=== PATIENT | male | born 1950 | race Caucasian/White ===

== ENCOUNTER → 2017-03-01 | Outpatient (CLI) | payer MEDICARE ==
--- NOTE | 2017-03-01 11:16 | RADIOLOGY REPORT (SQ) ---
EXAM DESCRIPTION: CHEST PA/LAT COMPLETED DATE/TIME: 03/01/2017 11:03 am REASON FOR STUDY: COPD EXACERBATION COMPARISON: November 2015 EXAM PARAMETERS: NUMBER OF VIEWS: two views TECHNIQUE: Digital Frontal and Lateral radiographic views of the chest acquired. RADIATION DOSE: NA LIMITATIONS: none FINDINGS: LUNGS AND PLEURA: No opacities, masses or pneumothorax. There is blunting of the costophr enic angles which could represent pleural reaction or small effusions. Chronic appearing changes are again identified. MEDIASTINUM AND HILAR STRUCTURES: No masses or contour abnormalities. HEART AND VASCULAR STRUCTURES: Cardiac silhouette remains enlarged. There is pulmonary vascular prem estion BONES: No acute findings. HARDWARE: Patient is status post median sternotomy with coronary bypass surgery OTHER: No other significant finding. IMPRESSION: Cardiomegaly with pulmonary vascular congestion. There is blunting of the costophrenic angles which could represent pleural reaction or small effusions. Other findings as noted above TECHNICAL DOCUMENTATION: JOB ID: [id number] [employer]- All Rights Reserved
== END ==
LOC: RAD 10:47
PROVIDERS: ATTEND Family Medicine
DX: J44.1 Chronic obstructive pulmonary disease with (acute) exacerbation (principal)
CPT/HCPCS: 71046

== ENCOUNTER → 2017-06-15 | Outpatient (CLI) | payer MEDICARE ==
--- NOTE | 2017-06-15 20:07 | XCELERA REPORT ---
[address] [address] Transthoracic Echocardiogram Report Name: EMILIA ENGLISH Age: 67 yrs Gender: Male : 1950 Patient Status: Outpatient Patient Location: Study Date: 06/15/2017 09:46 AM Height: 72 in Weight: 226 lb BSA: 2.2 m2 Procedure: A complete two-dimensional transthoracic echocardiogram was performed (2D, M-mode, spectral and color flow Doppler). The study was technically difficult with many images being suboptimal in quality. Reason For Study: [id number] Ordering Physician: MICHELE MURRY Performed By: Khalida Rajan Interpretation Summary LV EF is 45% LV diastolic function could not be adequately assessed due to atrial fibrilation. Left ventricular systolic function is mildly reduced. There is borderline concentric left ventricular hypertrophy. The left ventricle is mildly dilated. There is mild global hypokinesis of the left ventricle. The right ventricular systolic function is borderline reduced. The right ventricle is mildly dilated. The right atrium is moderate to severely dilated. The left atrium is severely dilated. There is a trace to mild amount of mitral regurgitation There is no mitral valve stenosis. There is mild aortic stenosis There is a peak gradient of 25 mm of Hg. There is a mild amount of aortic regurgitation There is a mild amount of tricuspid regurgitation There is mild pulmonary hypertension by echo Right ventricular systolic pressure is estimated to be elevated at 40- 50mmHg. There is no pericardial effusion. MMode/2D Measurements & Calculations RVDd: 3.2 cm LVIDd: 6.2 cmFS: 15.6 % Ao root diam: 3.7 cm IVSd: 0.99 cm LVIDs: 5.3 cmEDV(Teich): 197.1 ml LVPWd: 1.1 cmESV(Teich): 133.3 mlAo root area: 11.0 cm2 EF(Teich): 32.3 % LVOT diam: 2.5 cm LVOT area: 4.8 cm2 Doppler Measurements & Calculations MV E max jak: MV dec slope: Ao V2 max: AI max jak: 167.2 cm/sec 634.0 cm/sec2 232.7 cm/sec 394.0 cm/sec MV dec time: Ao max PG: AI max P.26 sec 21.7 mmHg 62.1 mmHg Ao V2 mean: AI dec slope: 162.9 cm/sec 160.5 cm/sec2 Ao mean PG: AI P1/2t: 11.9 mmHg 718.9 msec Ao V2 VTI: 52.7 cm MARBELLA(I,D): 1.9 cm2 MARBELLA(V,D): 1.8 cm2 LV V1 max PG: SV(LVOT): 97.6 ml PA V2 max: PI end-d jak: 3.1 mmHg 100.0 cm/sec 128.7 cm/sec LV V1 mean PG: PA max P.5 mmHg 4.0 mmHg LV V1 max: 88.3 cm/sec LV V1 mean: 58.2 cm/sec LV V1 VTI: 20.1 cm TR max jak: 273.2 cm/sec TR max P.3 mmHg Left Ventricle The left ventricle is mildly dilated. There is borderline concentric left ventricular hypertrophy. Left ventricular systolic function is mildly reduced. LV EF is 45%. LV diastolic function could not be adequately assessed due to atrial fibrilation. There is mild global hypokinesis of the left ventricle. Right Ventricle The right ventricle is mildly dilated. There is normal right ventricular wall thickness. The right ventricular systolic function is borderline reduced. Atria The right atrium is moderate to severely dilated. The left atrium is severely dilated. Interarterial septum not well visualized and not well dopplered. Cannot comment on ASD/PFO presence. Mitral Valve The mitral valve is grossly normal. There is no mitral valve stenosis. There is a trace to mild amount of mitral regurgitation. Aortic Valve The aortic valve is mildly calcified. There is mild aortic stenosis. There is a peak gradient of 25 mm of Hg. There is a mild amount of aortic regurgitation. Tricuspid Valve The tricuspid valve is not well visualized, but is grossly normal. There is no tricuspid stenosis. There is a mild amount of tricuspid regurgitation. There is mild pulmonary hypertension by echo. Right ventricular systolic pressure is estimated to be elevated at 40-50mmHg. Pulmonic Valve The pulmonic valve is not well visualized. Great Vessels The aortic root is not well visualized but is probably normal size. The inferior vena cava appeared normal and decreased < 50% with respiration (RAP 10-15 mmHg). Effusions There is no pericardial effusion. : MICHELE MURRY > Henry Barnhatr
== END ==
LOC: SP 09:41
PROVIDERS: ATTEND Physician Assistant
DX: R06.00 Dyspnea, unspecified (principal)
CPT/HCPCS: 93306

== ENCOUNTER 2017-08-16 21:24 | Inpatient (IN) | payer MEDICARE ==
[2017-08-16] MEDS ORDERED: LEVOFLOXACIN 750 MG/D5W RTU 750 MG/150 ML RTUPB IV ONE (22:04)
[2017-08-16] MEDS ORDERED: IPRATROPIUM/ALBUTEROL 0.5-2.5 MG/3 ML AMPUL NEB ONE ×2 (22:04→23:08)
--- NOTE | 2017-08-16 22:04 | RADIOLOGY REPORT (SQ) ---
EXAM DESCRIPTION: CHEST SINGLE VIEW COMPLETED DATE/TIME: 08/16/2017 9:54 pm REASON FOR STUDY: cough COMPARISON: 03/01/2017 EXAM PARAMETERS: NUMBER OF VIEWS: One view. TECHNIQUE: Single frontal radiographic view of the chest acquired. RADIATION DOSE: NA LIMITATIONS: None. FINDINGS: LUNGS AND PLEURA: Mild increased interstitial prominence compared with the prior examinati on. Similar blunting of the right costophrenic angle. No pneumothorax. MEDIASTINUM AND HILAR STRUCTURES: Stable. HEART AND VASCULAR STRUCTURES: Similar cardiomegaly. BONES: No acute findings. HARDWARE: Sternotomy. OTHER: No other significant finding. IMPRESSION: Mild increased interstitial prominence compared with the prior examination. TECHNICAL DOCUMENTATION: JOB ID: [id number] [employer]- All Rights Reserved Reading location - IP/workstation name: [email or web address]
--- NOTE | 2017-08-16 22:07 | ER Document Report ---
ED General - General Chief Complaint: Fever Stated Complaint: COLD SYMPTOMS Time Seen by Provider: 08/16/17 21:57 Notes: Patient is a pleasant 67-year-old male who presents with complaint of difficulty breathing and coughing of yellow sputum. He also had fevers of 101 at home. He is a smoker but says he has cut back a lot in the last year. He does have history of kidney cancer but says currently is cancer free. Does have history of hypertension. He says last time he was hospitalized was year ago for pneumonia. He has no other complaints at this time. Chest pain. No abdominal pain. No vomiting. TRAVEL OUTSIDE OF THE [place] IN LAST 30 DAYS: No - Related Data Allergies/Adverse Reactions: codeine [Codeine] Adverse Reaction (Verified 08/20/15 00:39) GI upset Past Medical History - Social History Smoking Status: Current Every Day Smoker Frequency of alcohol use: None Drug Abuse: None Family History: Reviewed & Not Pertinent, Other Patient has suicidal ideation: No Patient has homicidal ideation: No - Past Medical History Cardiac Medical History: Reports: Hx Atrial Fibrillation, Hx Hypercholesterolemia, Hx Hypertension Renal/ Medical History: Denies: Hx Peritoneal Dialysis Psychiatric Medical History: Denies: Hx Depression Past Surgical History: Reports: Hx Appendectomy, Hx Cardiac Catheterization, Hx Cardiac Surgery - double by-pass surgery, Hx Open Heart Surgery - triple bypass 1994, Hx Orthopedic Surgery - Backx 2, neck x 1, Hx Tonsillectomy - Immunizations Hx Diphtheria, Pertussis, Tetanus Vaccination: Yes Hx Pneumococcal Vaccination: 02/13/08 Review of Systems - Review of Systems Notes: My Normal Review Basic REVIEW OF SYSTEMS: CONSTITUTIONAL : Fevers. Feels weak and faint. EENT: Denies eye, ear, throat, or mouth pain or symptoms. Denies nasal or sinus congestion. CARDIOVASCULAR: Denies chest pain. RESPIRATORY: Coughing and difficulty breathing GASTROINTESTINAL: Denies abdominal pain. Denies nausea, vomiting, or diarrhea. GENITOURINARY: Denies difficulty urinating, painful urination, burning, frequency, or blood in urine. SKIN: Denies rash or skin lesions. NEUROLOGICAL: Denies altered mental status or loss of consciousness. ALL OTHER SYSTEMS REVIEWED AND NEGATIVE. Physical Exam - Vital signs Vitals: Temp Pulse Resp BP Pulse Ox 99.4 F 92 18 123/62 93 08/16/17 21:32 08/16/17 21:32 08/16/17 21:32 08/16/17 21:32 08/16/17 21:32 - Notes Notes: General Appearance: Well nourished, alert, cooperative, no acute distress, no obvious discomfort. Vitals: reviewed, See vital signs table. Head: no swelling or tenderness to the head Eyes: PERRL, EOMI, Conjuctiva clear Mouth: No decreasd moisture Throat: No tonsillar inflammation, No airway obstruction, No lymphadenopathy Neck: Supple, no neck tenderness Lungs: Diffuse wheezing, No rales, diffuse rhonci, No accessory muscle use, good air exchange bilaterally. Heart: Normal rate, Regular rythm, No murmur, no rub Abdomen: Normal BS, soft, No rigidity, No abdominal tenderness, No guarding, no rebound, no abdominal masses, no organomegaly Extremities: strength 5/5 in all extremities, good pulses in all extremities, no swelling or tenderness in the extremities, no edema. Skin: warm, dry, appropriate color, no rash Neuro: speech clear, oriented x 3, normal affect, responds appropriately to questions. Course - Re-evaluation Re-evalutation: 08/16/17 23:19 Patient does not have increased work of breathing at rest however his oxygen saturation is only 91-92% while at rest on room air. With 2 L of oxygen his oxygen saturation is 93-95%. Still some wheezing his lung perry which has improved some with breathing treatment. He does have some chronic scarring on his chest x-ray but his chest x-ray today in comparison to his old one does show my opinion is significantly increased interstitial markings especially on the left side which appears to be having a consolidation. This conjunction with him being 67 years old, requiring some supplemental oxygen, having fevers, and having production of yellow sputum suggest that he has bilateral pneumonia. [place] appropriate to observe him overnight. I did speak with the hospitalist, Dr. Ewing, who agrees to admit the patient. Dictation of this chart was performed using voice recognition software; therefore, there may be some unintended grammatical errors. - Vital Signs Vital signs: Temp Pulse Resp BP Pulse Ox 99.4 F 92 18 123/62 93 08/16/17 21:32 08/16/17 21:32 08/16/17 21:32 08/16/17 21:32 08/16/17 21:32 - Laboratory Result Diagrams: 08/16/17 22:05 08/16/17 22:05 Laboratory results interpreted by me: 08/16/17 08/16/17 22:05 22:05 WBC 13.0 H RBC 3.81 L Hgb 12.6 L Hct 37.3 L MCV 98 H Absolute Neutrophils 9.7 H Carbon Dioxide 31 H Creatinine 1.40 H Est GFR (Non-Af Amer) 50 L Glucose 112 H Discharge - Discharge Clinical Impression: Pneumonia Qualifiers: Pneumonia type: due to unspecified organism Laterality: bilateral Lung location : unspecified part of lung Qualified Code(s): J18.9 - Pneumonia, unspecified organism Condition: Stable Disposition: ADMITTED OBSERVATION Admitting Provider: Hospitalist Unit Admitted: Medical Floor Referrals: MICHELE MURRY PA-C [ALLIED HEALTH PROFESSIONAL] - Follow up as needed
[2017-08-16 22:25] LABS: VENOUS BLOOD HCO3 30.3 mmol/L (20-32); VENOUS BLOOD PCO2 52.1 mmHg (35-63); VENOUS BLOOD PH 7.38 (7.30-7.42)
[2017-08-16 22:28] LABS: ABSOLUTE EOSINOPHILS # (AUTO) 0.2 10^3/uL (0.0-0.6); ABSOLUTE LYMPHOCYTES (AUTO) 1.8 10^3/uL (0.5-4.7); ABSOLUTE MONOCYTES (AUTO) 1.4 10^3/uL (0.1-1.4); ABSOLUTE NEUT (AUTO) 9.7 10^3/uL (1.7-8.2); BASOPHILS % (AUTO) 0.3 % (0-2); EOSINOPHILS % (AUTO) 1.4 % (0-6); HEMATOCRIT 37.3 % (37.9-51.0); HEMOGLOBIN 12.6 g/dL (13.5-17.0); LYMPHOCYTES % (AUTO) 13.5 % (13-45); MEAN CORPUSCULAR HGB CONC 33.8 g/dL (32.0-36.0); MEAN CORPUSCULAR VOLUME 98 fl (80-97); MONOCYTES % (AUTO) 10.6 % (3-13); PLATELET COUNT 161 10^3/uL (150-450); RED BLOOD COUNT 3.81 10^6/uL (4.35-5.55); RED CELL DISTRIBUTION WIDTH 13.4 % (11.5-14.0); SEGMENTED NEUTROPHILS % (AUTO) 74.2 % (42-78); TOTAL CELLS COUNTED % (AUTO) 100 %
[2017-08-16 22:41] LABS: ALANINE AMINOTRANSFERASE 22 U/L (21-72); ALBUMIN 3.8 g/dL (3.5-5.0); ALKALINE PHOSPHATASE 65 U/L (38-126); ANION GAP 9 (5-19); ASPARTATE AMINO TRANSFERASE 18 U/L (17-59); BILIRUBIN,DIRECT 0.4 mg/dL (0.0-0.4); BILIRUBIN,TOTAL 0.9 mg/dL (0.2-1.3); BLOOD UREA NITROGEN 19 mg/dL (7-20); CALCIUM 8.6 mg/dL (8.4-10.2); CARBON DIOXIDE 31 mmol/L (22-30); CHLORIDE 103 mmol/L (98-107); GLUCOSE 112 mg/dL (75-110); POTASSIUM 3.8 mmol/L (3.6-5.0); SODIUM 142.5 mmol/L (137-145); TOTAL PROTEIN 7.3 g/dL (6.3-8.2)
[2017-08-16] MEDS ORDERED: CARVEDILOL 6.25 MG TABLET PO ONE (23:30)
[2017-08-17 00:36] LABS: NT PRO BNP 646 pg/mL (5-900)
[2017-08-17 00:37] LABS: TROPONIN I < 0.012 ng/mL
[2017-08-17] MEDS ORDERED: IPRATROPIUM/ALBUTEROL 0.5-2.5 MG/3 ML AMPUL NEB PRN (01:03)
[2017-08-17] MEDS ORDERED: ACETAMINOPHEN 325 MG TABLET PO PRN (01:03)
[2017-08-17] MEDS ORDERED: CHLORPHENIRAMINE MALEATE 4 MG TABLET PO ONE (01:05)
[2017-08-17] MEDS: GUAIFENESIN SYRP 200 MG/10 ML UDC PO PRN ×3 (02:20→18:13)
--- NOTE | 2017-08-17 04:00 | PDOC H&P ---
History of Present Illness Admission Date/PCP: 08/17/17 00:03 KERRI SIGALA DO Patient complains of: Shortness of breath and cough History of Present Illness: EMILIA ENGLIHS is a 67 year old male with past medical history of coronary artery disease, status post coronary artery bypass graft, atrial fibrillation on Coumadin, COPD, recurrent pneumonia, and a right-sided kidney cancer, now cancer free. He presents with 24 hours of shortness of breath and productive cough of yellow sputum associated with a temperature of 101.0 at home. He denies infectious contacts, rhinorrhea, sore throat or GERD. He denies recent antibiotic use. In the emergency room he found to have increased interstitial markings on the left as well as rails. He is started on empiric antibiotics and referred to the hospitalist for admission. Past Medical History Cardiac Medical History: Reports: Atrial Fibrillation, Hyperlipidema, Hypertension Pulmonary Medical History: Reports: Chronic Obstructive Pulmonary Disease (COPD) , Pneumonia Psychiatric Medical History: Reports: Tobacco Dependency Denies: Depression Past Surgical History Past Surgical History: Reports: Appendectomy, Cardiac Catheterization, Orthopedic Surgery - Backx 2, neck x 1, Tonsillectomy Social History Information Source: Patient, [facility] Records Smoking Status: Current Every Day Smoker Frequency of Alcohol Use: None Hx Recreational Drug Use: No Drugs: None Hx Prescription Drug Abuse: No - Advance Directive Resuscitation Status: Full Code Family History Family History: COPD, Other Parental Family History Reviewed: Yes Children Family History Reviewed: Yes Sibling(s) Family History Reviewed.: Yes Medication/Allergy Home Medications: Carvedilol [Coreg 6.25 mg Tablet] 6.25 mg PO Q12 11/21/13 Lisinopril [Prinivil 5 mg Tablet] 5 mg PO DAILY 11/21/13 Simvastatin [Zocor 20 mg Tablet] 20 mg PO QHS 11/21/13 Spironolactone 25 mg PO DAILY 11/21/13 Warfarin Sodium 4 mg PO ASDIR 11/21/13 Albuterol Sulfate [Proair Respiclick] 90 mcg IH Q6H #1 aer.pow.[email or web address] 08/22/15 Fluticasone Propionate [Flonase Nasal Corinne 50 Mcg/Corinne 16 gm] 2 spray NASL DAILY #1 bottle 08/22/15 Ipratropium/Albuterol Sulfate [Duoneb 3 ml Ampul] 3 ml NEB RTQ6 30 Days vial.neb 08/22/15 Moxifloxacin HCl 400 mg PO DAILY #14 tablet 08/22/15 Prednisone [Deltasone 20 mg Tablet] 40 mg PO BID #30 tablet 08/22/15 Tiotropium [place] [Spiriva Handihaler 18 mcg/dose (30 Dose)] 1 cap IH DAILY # 30 capsule 08/22/15 Allergies/Adverse Reactions: codeine [Codeine] Adverse Reaction (Verified 08/20/15 00:39) GI upset Review of Systems Constitutional: ABSENT: chills, fever(s), headache(s), weight gain, weight loss Eyes: ABSENT: visual disturbances Ears: ABSENT: hearing changes Cardiovascular: ABSENT: chest pain, dyspnea on exertion, edema, orthropnea, palpitations Respiratory: ABSENT: cough, hemoptysis Gastrointestinal: ABSENT: abdominal pain, constipation, diarrhea, hematemesis, hematochezia, nausea, vomiting Genitourinary: ABSENT: dysuria, hematuria Musculoskeletal: ABSENT: joint swelling Integumentary: ABSENT: rash, wounds Neurological: ABSENT: abnormal gait, abnormal speech, confusion, dizziness, focal weakness, syncope Psychiatric: ABSENT: anxiety, depression, homidical ideation, suicidal ideation Endocrine: ABSENT: cold intolerance, heat intolerance, polydipsia, polyuria Hematologic/Lymphatic: ABSENT: easy bleeding, easy bruising Physical Exam Vital Signs: Temp Pulse Resp BP Pulse Ox 98.6 F 87 22 H 120/67 95 08/17/17 01:50 08/17/17 01:50 08/17/17 01:50 08/17/17 01:50 08/17/17 01:50 General appearance: PRESENT: cooperative, mild distress. ABSENT: disheveled, hard of hearing Head exam: PRESENT: atraumatic, normocephalic Eye exam: PRESENT: conjunctiva pink, EOMI, PERRLA. ABSENT: scleral icterus Ear exam: PRESENT: normal external ear exam Mouth exam: PRESENT: moist, tongue midline Neck exam: ABSENT: carotid bruit, JVD, lymphadenopathy, thyromegaly Respiratory exam: PRESENT: accessory muscle use, crackles, decreased breath sounds, prolonged expiratory phas, rales, tachypnea, wheezes. ABSENT: chest wall tenderness, clear to auscultation naomi Cardiovascular exam: PRESENT: RRR. ABSENT: diastolic murmur, rubs, systolic murmur Pulses: PRESENT: normal dorsalis pedis pul Vascular exam: PRESENT: normal capillary refill GI/Abdominal exam: PRESENT: normal bowel sounds, soft. ABSENT: distended, guarding, mass, organolmegaly, rebound, tenderness Rectal exam: PRESENT: deferred Extremities exam: PRESENT: full ROM. ABSENT: calf tenderness, clubbing, pedal edema Neurological exam: PRESENT: alert, awake, oriented to person, oriented to place , oriented to time, oriented to situation, CN II-XII grossly intact. ABSENT: motor sensory deficit Psychiatric exam: PRESENT: appropriate affect, normal mood. ABSENT: homicidal ideation, suicidal ideation Skin exam: PRESENT: dry, intact, warm. ABSENT: cyanosis, rash Results Impressions: Chest X-Ray 08/16/17 00:00 IMPRESSION: Mild increased interstitial prominence compared with the prior examination. Assessment & Plan - Diagnosis (1) Pneumonia Qualifiers: Pneumonia type: due to unspecified organism Laterality: bilateral Lung location: unspecified part of lung Qualified Code(s): J18.9 - Pneumonia, unspecified organism Is this a current diagnosis for this admission?: Yes Plan: Pneumonia care set, incentive spirometry, empiric antibiotics, follow-up CBC and culture (2) COPD exacerbation Is this a current diagnosis for this admission?: Yes Plan: Albuterol and Atrovent, chlorpheniramine, PEEP and incentive spirometry (3) Tobacco abuse Is this a current diagnosis for this admission?: Yes Plan: Tobacco Dependence patient received tobacco cessation counseling and offered nicotine replacement options - Time Time Spent: 30 to 50 Minutes
[2017-08-17 04:59] LABS: CREATINE KINASE MB 0.58 ng/mL (<4.55)
[2017-08-17 05:00] LABS: TROPONIN I < 0.012 ng/mL
[2017-08-17] MEDS: HEPARIN SOD (PORCINE) 5,000 UNIT/ML 1 ML SYRINGE SUBCUT SCH ×3 (05:50→21:35)
--- NOTE | 2017-08-17 07:16 | EKG REPORT ---
SEVERITY:- ABNORMAL ECG - ATRIAL FIBRILLATION LOW VOLTAGE IN FRONTAL LEADS : Confirmed by: Khoa Mayorga MD 17-Aug-2017 07:15:55
[2017-08-17] MEDS: IPRATROPIUM/ALBUTEROL 0.5-2.5 MG/3 ML AMPUL NEB SCH ×2 (08:11→15:51)
[2017-08-17] MEDS: FLUTICASONE NASAL SPRAY 50 MCG/SPRY 120 SPRAY/16 GM NASL SCH ×2 (09:01→21:34)
[2017-08-17] MEDS ORDERED: CARVEDILOL 6.25 MG TABLET PO SCH (10:00)
[2017-08-17] MEDS ORDERED: FLUTICASONE NASAL SPRAY 50 MCG/SPRY 120 SPRAY/16 GM NASL SCH (10:00)
[2017-08-17] MEDS ORDERED: (PENDING PHARMACY ID) (Warfarin Sodium 3 MG) PO SCH (10:00)
[2017-08-17] MEDS ORDERED: (PENDING PHARMACY ID) (Carvedilol [Coreg 25 Mg Tablet] 1 TAB) PO SCH (10:00)
[2017-08-17 10:35] LABS: CREATINE KINASE MB 0.64 ng/mL (<4.55); TROPONIN I < 0.012 ng/mL
[2017-08-17] MEDS: LISINOPRIL 5 MG TABLET PO SCH (11:04)
[2017-08-17] MEDS: CARVEDILOL 12.5 MG TABLET PO SCH (11:04)
[2017-08-17] MEDS: TIOTROPIUM BROMIDE DPI 5 CAP/KIT (18 MCG/CAP) IH SCH (11:10)
[2017-08-17] MEDS: WARFARIN SODIUM 3 MG TABLET PO SCH (11:10)
[2017-08-17] MEDS: SPIRONOLACTONE 25 MG TABLET PO SCH (11:11)
[2017-08-17] MEDS ORDERED: LEVOFLOXACIN 750 MG/D5W RTU 750 MG/150 ML RTUPB IV SCH (18:00)
[2017-08-18] MEDS: IPRATROPIUM/ALBUTEROL 0.5-2.5 MG/3 ML AMPUL NEB SCH ×3 (00:37→15:35)
[2017-08-18] MEDS: GUAIFENESIN SYRP 200 MG/10 ML UDC PO PRN (03:16)
[2017-08-18 05:51] LABS: ANION GAP 9 (5-19); BLOOD UREA NITROGEN 19 mg/dL (7-20); CALCIUM 8.2 mg/dL (8.4-10.2); CARBON DIOXIDE 33 mmol/L (22-30); CHLORIDE 100 mmol/L (98-107); GLUCOSE 100 mg/dL (75-110); POTASSIUM 4.4 mmol/L (3.6-5.0); SODIUM 141.6 mmol/L (137-145)
[2017-08-18] MEDS: HEPARIN SOD (PORCINE) 5,000 UNIT/ML 1 ML SYRINGE SUBCUT SCH ×2 (06:42→14:09)
[2017-08-18] MEDS: LISINOPRIL 5 MG TABLET PO SCH (08:31)
[2017-08-18] MEDS: CARVEDILOL 12.5 MG TABLET PO SCH (08:31)
[2017-08-18] MEDS: FLUTICASONE NASAL SPRAY 50 MCG/SPRY 120 SPRAY/16 GM NASL SCH (08:38)
[2017-08-18] MEDS: WARFARIN SODIUM 3 MG TABLET PO SCH (08:38)
[2017-08-18] MEDS: TIOTROPIUM BROMIDE DPI 5 CAP/KIT (18 MCG/CAP) IH SCH (08:38)
[2017-08-18] MEDS: SPIRONOLACTONE 25 MG TABLET PO SCH (08:38)
[2017-08-18 15:42] LABS: ABSOLUTE BASOPHILS # (AUTO) 0.1 10^3/uL (0.0-0.2); ABSOLUTE EOSINOPHILS # (AUTO) 0.2 10^3/uL (0.0-0.6); ABSOLUTE LYMPHOCYTES (AUTO) 1.4 10^3/uL (0.5-4.7); ABSOLUTE MONOCYTES (AUTO) 0.9 10^3/uL (0.1-1.4); ABSOLUTE NEUT (AUTO) 7.6 10^3/uL (1.7-8.2); BASOPHILS % (AUTO) 0.6 % (0-2); EOSINOPHILS % (AUTO) 1.6 % (0-6); HEMATOCRIT 36.8 % (37.9-51.0); HEMOGLOBIN 12.4 g/dL (13.5-17.0); LYMPHOCYTES % (AUTO) 13.8 % (13-45); MEAN CORPUSCULAR HGB CONC 33.7 g/dL (32.0-36.0); MEAN CORPUSCULAR VOLUME 98 fl (80-97); MONOCYTES % (AUTO) 9.2 % (3-13); PLATELET COUNT 163 10^3/uL (150-450); RED BLOOD COUNT 3.75 10^6/uL (4.35-5.55); RED CELL DISTRIBUTION WIDTH 13.2 % (11.5-14.0); SEGMENTED NEUTROPHILS % (AUTO) 74.8 % (42-78); TOTAL CELLS COUNTED % (AUTO) 100 %; WHITE BLOOD COUNT 10.1 10^3/uL (4.0-10.5)
[2017-08-18 16:02] LABS: INTERNATIONAL RATION (INR) 2.36; PROTHROMBIN TIME 26.9 SEC (11.4-15.4)
[2017-08-18 16:07] VITALS: BP 107/56
--- NOTE | 2017-08-18 16:24 | PDOC DISCHARGE SUMMARY ---
General - Admit/Disc Date/PCP Admission Date/Primary Care Provider: 08/17/17 16:41 KERRI CURIELUMATE, Discharge Date: 08/18/17 - Discharge Diagnosis (1) COPD exacerbation Is this a current diagnosis for this admission?: Yes (2) Pneumonia Is this a current diagnosis for this admission?: Yes (3) Tobacco abuse Is this a current diagnosis for this admission?: Yes (4) Anticoagulant long-term use Is this a current diagnosis for this admission?: Yes - Additional Information Resuscitation Status: Full Code Discharge Activity: Activity As Tolerated Prescriptions: Levofloxacin [Levaquin 500 mg Tablet] 500 mg PO DAILY #5 tablet Home Medications: Lisinopril [Prinivil 5 mg Tablet] 5 mg PO DAILY 11/21/13 Simvastatin [Zocor 20 mg Tablet] 20 mg PO QHS 11/21/13 Spironolactone 25 mg PO DAILY 11/21/13 Tiotropium [place] [Spiriva Handihaler 18 mcg/dose (30 Dose)] 1 cap IH DAILY # 30 capsule 08/22/15 Albuterol Sulfate [Proair Respiclick] 90 mcg IH Q6H PRN 08/17/17 Carvedilol [Coreg 25 mg Tablet] 1 tab PO DAILY 08/17/17 Fluticasone/Vilanterol [Breo Ellipta 100-25 Mcg INH] 1 each IH DAILY 08/17/17 Ipratropium/Albuterol Sulfate [Duoneb 3 ml Ampul] 3 ml NEB RTQ6 PRN 08/17/17 Warfarin Sodium [Coumadin 3 mg Tablet] 3 mg PO DAILY 08/17/17 Guaifenesin [Robitussin Syrup 200 mg/10 ml Ud Cup] 200 mg PO Q4HP PRN udc 08/18 Levofloxacin [Levaquin 500 mg Tablet] 500 mg PO DAILY #5 tablet 08/18/17 History of Present Illness Patient complains of: Patient was admitted with difficulty breathing and shortness of breath as well as a cough and fever. He was started on empiric antibiotics and admitted for further management. History of Present Illness: EMILIA ENGLISH is a 67 year old male pneumonia, and a right-sided kidney cancer, now cancer free. He presents with 24 hours of shortness of breath and productive cough of yellow sputum associated with a temperature of 101.0 at home. He denies infectious contacts, rhinorrhea, sore throat or GERD. He denies recent antibiotic use. In the emergency room he found to have increased interstitial markings on the left as well as rails. He is started on empiric antibiotics and referred to the hospitalist for admission. Hospital Course Hospital Course: Patient was admitted with difficulty breathing and shortness of breath as well as a cough and fever. He was started on empiric antibiotics and admitted for further management. Patient responded well to this regimen in fact at this time he has been afebrile and he has clinically improved. His white count is normalized and has required no extra oxygen. Patient has been ambulating with no difficulties and would no further interventions been planned and with hemodynamic stability patient is been discharged home on oral antibiotic. Physical Exam Vital Signs: Temp Pulse Resp BP Pulse Ox 98.5 F 78 16 107/56 L 93 08/18/17 16:01 08/18/17 16:01 08/18/17 16:01 08/18/17 16:01 08/18/17 16:01 Intake & Output 08/17/17 08/18/17 08/19/17 06:59 06:59 06:59 Intake Total 410 450 Balance 410 450 Weight 95.7 kg General appearance: PRESENT: no acute distress, well-nourished Head exam: PRESENT: atraumatic, normocephalic Eye exam: PRESENT: conjunctiva pink, EOMI, PERRLA. ABSENT: scleral icterus Ear exam: PRESENT: normal external ear exam Mouth exam: PRESENT: moist, tongue midline Neck exam: ABSENT: carotid bruit, JVD, lymphadenopathy, thyromegaly Respiratory exam: PRESENT: clear to auscultation naomi, rhonchi - scattered. ABSENT: rales, wheezes Cardiovascular exam: PRESENT: RRR. ABSENT: diastolic murmur, rubs, systolic murmur Pulses: PRESENT: normal dorsalis pedis pul Vascular exam: PRESENT: normal capillary refill GI/Abdominal exam: PRESENT: normal bowel sounds, soft. ABSENT: distended, guarding, mass, organolmegaly, rebound, tenderness Rectal exam: PRESENT: deferred Extremities exam: PRESENT: full ROM. ABSENT: calf tenderness, clubbing, pedal edema Neurological exam: PRESENT: alert, awake, oriented to person, oriented to place , oriented to time, oriented to situation, CN II-XII grossly intact. ABSENT: motor sensory deficit Psychiatric exam: PRESENT: appropriate affect, normal mood. ABSENT: homicidal ideation, suicidal ideation Skin exam: PRESENT: dry, intact, warm. ABSENT: cyanosis, rash Results Laboratory Results: 08/18/17 15:20 08/18/17 04:48 08/18/17 08/18/17 04:48 15:20 WBC 10.1 RBC 3.75 L Hgb 12.4 L Hct 36.8 L MCV 98 H MCH 33.0 MCHC 33.7 RDW 13.2 Plt Count 163 Seg Neutrophils % 74.8 Lymphocytes % 13.8 Monocytes % 9.2 Eosinophils % 1.6 Basophils % 0.6 Absolute Neutrophils 7.6 Absolute Lymphocytes 1.4 Absolute Monocytes 0.9 Absolute Eosinophils 0.2 Absolute Basophils 0.1 Sodium 141.6 Potassium 4.4 Chloride 100 Carbon Dioxide 33 H Anion Gap 9 BUN 19 Creatinine 1.11 Est GFR ( Amer) > 60 Est GFR (Non-Af Amer) > 60 Glucose 100 Calcium 8.2 L Impressions: Chest X-Ray 08/16/17 00:00 IMPRESSION: Mild increased interstitial prominence compared with the prior examination. Qualifiers - * PATIENT BEING DISCHARGED WITH ANY OF THE FOLLOWING DIAGNOSIS: No Plan Time Spent: Less than 30 Minutes
== END 2017-08-18 16:55 | disposition home or self-care (01) | DRG 194 ==
LOC: ER 21:24 → EH 08-17 00:03 → 4N 08-17 01:10 → OBSVTOIN 08-17 16:41
PROVIDERS: ADMIT Internal Medicine; ATTEND Internal Medicine
PROC: 3E0F73Z Introduction of Anti-inflammatory into Respiratory Tract, Via Natural or Artificial Opening (ICD-10-PCS; principal; 2017-08-17)
DX: J18.9 Pneumonia, unspecified organism (principal); J44.1 Chronic obstructive pulmonary disease with (acute) exacerbation; J44.0 Chronic obstructive pulmonary disease with (acute) lower respiratory infection; F17.210 Nicotine dependence, cigarettes, uncomplicated; I25.10 Atherosclerotic heart disease of native coronary artery without angina pectoris; I48.91 Unspecified atrial fibrillation; I10 Essential (primary) hypertension; E78.00 Pure hypercholesterolemia, unspecified; Z79.01 Long term (current) use of anticoagulants; Z79.899 Other long term (current) drug therapy; Z79.1 Long term (current) use of non-steroidal anti-inflammatories (NSAID); Z88.6 Allergy status to analgesic agent; Z85.528 Personal history of other malignant neoplasm of kidney; Z83.6 Family history of other diseases of the respiratory system
CPT/HCPCS: 36415; 71045; 80048; 80053; 82550; 82553; 82803; 83880; 84484; 85025; 85610; 87040; 93005; 93010; 94640; 94667; 94799; 96365; 96366; 99285; G0378; J1644; J1956; J3490; J7620

== ENCOUNTER → 2017-11-27 | Outpatient (CLI) | payer MEDICARE ==
--- NOTE | 2017-11-27 10:13 | RADIOLOGY REPORT (SQ) ---
EXAM DESCRIPTION: CHEST PA/LATERAL COMPLETED DATE/TIME: 11/27/2017 10:04 am REASON FOR STUDY: COPD COMPARISON: 08/16/2017 EXAM PARAMETERS: NUMBER OF VIEWS: two views TECHNIQUE: Digital Frontal and Lateral radiographic views of the chest acquired. RADIATION DOSE: NA LIMITATIONS: none FINDINGS: LUNGS AND PLEURA: Diffuse bilateral interstitial airspace disease remains. There has been no significant change from prior study. There is chronic blunting of the costophrenic angles most l ikely pleural thickening. MEDIASTINUM AND HILAR STRUCTURES: No masses or contour abnormalities. HEART AND VASCULAR STRUCTURES: Heart remains enlarged. BONES: No acute findings. HARDWARE: Sternotomy wires are in place. OTHER: No other significant finding. 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 There is been no significant change from prior exam. TECHNICAL DOCUMENTATION: JOB ID: [id number] [employer]- All Rights Reserved Reading location - IP/workstation name: [email or web address]
== END ==
LOC: OD 09:56
PROVIDERS: ATTEND Physician Assistant
DX: J44.9 Chronic obstructive pulmonary disease, unspecified (principal); I51.7 Cardiomegaly
CPT/HCPCS: 71046; 87070; 87205

== ENCOUNTER 2018-06-01 07:06 | Emergency (ER) | payer MEDICARE ==
[2018-06-01] MEDS ORDERED: HYDROMORPHONE HCL INJ/PF 2 MG/ML AMPULE IV ONE (07:32)
[2018-06-01] MEDS ORDERED: ONDANSETRON HCL INJ/PF 4 MG/2 ML SDV IV ONE (07:32)
[2018-06-01 07:55] LABS: ABSOLUTE EOSINOPHILS # (AUTO) 0.2 10^3/uL (0.0-0.6); ABSOLUTE LYMPHOCYTES (AUTO) 1.5 10^3/uL (0.5-4.7); ABSOLUTE MONOCYTES (AUTO) 0.7 10^3/uL (0.1-1.4); ABSOLUTE NEUT (AUTO) 5.9 10^3/uL (1.7-8.2); BASOPHILS % (AUTO) 0.6 % (0-2); EOSINOPHILS % (AUTO) 2.8 % (0-6); HEMATOCRIT 38.2 % (37.9-51.0); HEMOGLOBIN 12.8 g/dL (13.5-17.0); LYMPHOCYTES % (AUTO) 17.7 % (13-45); MEAN CORPUSCULAR HGB CONC 33.6 g/dL (32.0-36.0); MEAN CORPUSCULAR VOLUME 101 fl (80-97); MONOCYTES % (AUTO) 8.6 % (3-13); PLATELET COUNT 136 10^3/uL (150-450); RED BLOOD COUNT 3.77 10^6/uL (4.35-5.55); RED CELL DISTRIBUTION WIDTH 13.4 % (11.5-14.0); SEGMENTED NEUTROPHILS % (AUTO) 70.3 % (42-78); TOTAL CELLS COUNTED % (AUTO) 100 %; WHITE BLOOD COUNT 8.3 10^3/uL (4.0-10.5)
[2018-06-01 08:12] LABS: ALANINE AMINOTRANSFERASE 24 U/L (21-72); ALBUMIN 3.9 g/dL (3.5-5.0); ALKALINE PHOSPHATASE 61 U/L (38-126); ANION GAP 7 (5-19); ASPARTATE AMINO TRANSFERASE 19 U/L (17-59); BILIRUBIN,DIRECT 0.3 mg/dL (0.0-0.4); BILIRUBIN,TOTAL 0.3 mg/dL (0.2-1.3); BLOOD UREA NITROGEN 18 mg/dL (7-20); CALCIUM 8.7 mg/dL (8.4-10.2); CARBON DIOXIDE 29 mmol/L (22-30); CHLORIDE 104 mmol/L (98-107); GLUCOSE 144 mg/dL (75-110); LIPASE 108.4 U/L (23-300); POTASSIUM 4.3 mmol/L (3.6-5.0); SODIUM 140.1 mmol/L (137-145); TOTAL PROTEIN 7.5 g/dL (6.3-8.2)
[2018-06-01 08:16] LABS: APPEARANCE,URINE CLEAR; BILIRUBIN,URINE NEGATIVE (NEGATIVE); COLOR,URINE YELLOW; GLUCOSE, URINE NEGATIVE (NEGATIVE); KETONES,URINE NEGATIVE (NEGATIVE); LEUKOCYTE ESTERASE,URINE NEGATIVE (NEGATIVE); NITRITE,URINE NEGATIVE (NEGATIVE); PROTEIN,URINE NEGATIVE (NEGATIVE); URINE SPECIFIC GRAVITY 1.018; UROBILINOGEN,URINE NEGATIVE mg/dL (<2.0)
--- NOTE | 2018-06-01 11:07 | RADIOLOGY REPORT (SQ) ---
EXAM DESCRIPTION: CT ABD/PELVIS WITH IV ORAL COMPLETED DATE/TIME: 06/01/2018 10:49 am REASON FOR STUDY: diffuse abd pain, worst in epigastrum and LLQ COMPARISON: CT abdomen pelvis 11/02/2014 TECHNIQUE: CT scan of the abdomen and pelvis performed using helical scanning technique without and with dynamic intravenous contrast injection. Patient drank oral contrast. Images reviewed with lung, soft tissue, and bone windows. Reconstructed coronal and sagittal MPR imag es reviewed. Delayed images for evaluation of the urinary system also acquired. All images stored on PACS. All CT scanners at this facility use dose modulation, iterative reconstruction, and/or weight based d osing when appropriate to reduce radiation dose to as low as reasonably achievable (ALARA). [facility]: Dose Right [facility]: CareDose [facility]: Dose Right [facility]: Teradose 4D [facility]: [facility] CONTRAST TYPE AND DOSE: contrast/concentration: Isovue 300.00 mg/ml; Total Contrast Delivered: 98.0 ml; Total Saline Delivered: 72.0 ml RENAL FUNCTION: Creatinine 1.4 RADIATION DOSE: CT Rad equipment meets quality standard of care and radiation dose reduction techniq ues were employed. CTDIvol: 11.9 - 16.2 mGy. DLP: 1772 mGy-cm.. LIMITATIONS: None. FINDINGS: On the right side, there is perinephric stranding in the right retroperitoneal fat around the kidney, and mild right hydronephrosis and hydroureter down to the level of the ureteral vesicle j unction, where a 2 mm calculus is present. Stone is best seen on coronal image 51 and axial image 94 . Delayed images demonstrate poor excretion of contrast into the right sided collecting system from urinary outflow obstruction. Elsewhere on the right side, patient is post ablation of a right upper pole renal neoplasm. Focal co rtical scarring with benign-appearing 5 mm dystrophic calcification right upper pole kidney. No righ t renal cysts. No other ureteral or collecting system stones on the right. LOWER CHEST: Gynecomastia. Chronic bibasilar increased interstitial markings in the lung parenchyma. Cardiomegaly and old CABG. Hiatal hernia LIVER: Normal size. No masses. No dilated ducts. SPLEEN: Normal size. No focal lesions. PANCREAS: No masses. No significant calcifications. No adjacent inflammation or peripancreatic fluid collections. Pancreatic duct not dilated. GALLBLADDER: Gallstones. No inflammatory changes to suggest cholecystitis. ADRENAL GLANDS: No significant masses or asymmetry. RIGHT KIDNEY AND URETER: As above LEFT KIDNEY AND URETER: No solid masses. No significant calcifications. No hydronephrosis or hydr oureter. AORTA AND VESSELS: Unruptured 4 cm infrarenal abdominal aortic aneurysm. Patent celiac artery, SMA, bilateral renal arteries, patent LIO RETROPERITONEUM: Right retroperitoneal stranding around the right kidney. No adenopathy BOWEL AND PERITONEAL CAVITY: Patient drank oral contrast. No bowel obstruction. Periampullary duode num diverticulum. Scattered colonic diverticuli without CT signs of acute diverticulitis. No free i ntraperitoneal air or fluid. APPENDIX: Not identified, patient states he is post appendectomy PELVIS: No mass. No free fluid. Normal bladder. ABDOMINAL WALL: Fat containing left inguinal hernia BONES: No significant or acute findings. OTHER: No other significant finding. IMPRESSION: 2 mm distal right ureteral stone causing right-sided hydronephrosis, hydroureter and per inephric stranding. Poor excretion of contrast into the right collecting system from urinary outflow obstruction. TECHNICAL DOCUMENTATION: JOB ID: [id number] Quality ID # [id number]: Final reports with documentation of one or more dose reduction techniques (e.g., Au tomated exposure control, adjustment of the mA and/or kV according to patient size, use of iterative reconstruction technique) 2010 [employer]- All Rights Reserved Reading location - IP/workstation name: [email or web address]
[2018-06-01 12:05] VITALS: BP 127/74
--- NOTE | 2018-06-01 15:03 | ER Document Report ---
Entered by MICHAEL KEYES SCRIBE 06/01/18 0732 Acting as scribe for:NATE MON DO ED GI/ - General Chief Complaint: Abdominal Pain Stated Complaint: ABDOMINAL PAIN Time Seen by Provider: 06/01/18 07:25 Primary Care Provider: KERRI SIGALA DO [Primary Care Provider] - Follow up as needed Information source: Patient Notes: 68-year-old male who presents to the emergency department today with complaints of right-sided abdominal pain that radiates to his back that began at 0500 this morning. Patient states he had a few bowel movements prior to arrival and the "later ones became watery". Patient complains of a subjective fever, diaphoresis, and shortness of breath only when the pain becomes severe. Patient is status post appendectomy but denies any other abdominal medical history. Patient does mention that he was "treated" for kidney cancer at the end of 2017. Patient denies a history of pancreatitis. Patient denies any blood in his stool, chest pain, or vomiting. TRAVEL OUTSIDE OF THE [place] IN LAST 30 DAYS: No - Related Data Allergies/Adverse Reactions: codeine [Codeine] Adverse Reaction (Verified 08/20/15 00:39) GI upset Past Medical History - General Information source: Patient, H Records - Social History Smoking Status: Current Every Day Smoker Cigarette use (# per day): Yes Frequency of alcohol use: None Drug Abuse: None Lives with: Family Family History: COPD, Other - Past Medical History Cardiac Medical History: Reports: Hx Atrial Fibrillation, Hx Hypercholesterolemia, Hx Hypertension Pulmonary Medical History: Reports: Hx COPD, Hx Pneumonia Malignancy Medical History: Reports Hx Skin Cancer - "treated" the last few months of 2017 Past Surgical History: Reports: Hx Appendectomy, Hx Cardiac Catheterization, Hx Coronary Artery Bypass Graft - Triple bypass, Hx Orthopedic Surgery - Back x2, neck x1, Hx Tonsillectomy - Immunizations Hx Diphtheria, Pertussis, Tetanus Vaccination: Yes Hx Pneumococcal Vaccination: 11/12/16 Review of Systems - Review of Systems Constitutional: See HPI, Diaphoresis, Fever - subjective EENT: No symptoms reported Cardiovascular: No symptoms reported Respiratory: See HPI, Short of breath - only when pain becomes severe Gastrointestinal: See HPI, Abdominal pain - radiating to back, Other - "watery" stool. denies: Vomiting, Black stools, Rectal bleeding Genitourinary: No symptoms reported Male Genitourinary: No symptoms reported Musculoskeletal: No symptoms reported Skin: No symptoms reported Hematologic/Lymphatic: No symptoms reported Neurological/Psychological: No symptoms reported -: Yes All other systems reviewed and negative Physical Exam - Vital signs Vitals: Temp Pulse Resp BP Pulse Ox 97.6 F 52 L 18 145/65 H 96 06/01/18 07:15 06/01/18 07:15 06/01/18 07:15 06/01/18 07:15 06/01/18 07:15 - Notes Notes: PHYSICAL EXAM GENERAL: Alert, interacts well. Appears somewhat uncomfortable. HEAD: Normocephalic, atraumatic. EYES: Pupils equal, round, and reactive to light. Extraocular movements intact. ENT: Oral mucosa moist, tongue midline. NECK: Full range of motion. Supple. Trachea midline. CHEST: Healed median sternotomy scar consistent with history of CABG. LUNGS: Expiratory wheezing bilaterally, no rales or rhonchi. No respiratory distress. HEART: Irregularly irregular, rate controlled. No murmurs, gallops, or rubs. ABDOMEN: Soft, most tender in the epigastric region, mild tenderness in the right upper quadrant, some tenderness in the left lower quadrant and right lower quadrant. Non-distended. Bowel sounds present in all 4 quadrants. No guarding, rigidity, or rebound. EXTREMITIES: Moves all 4 extremities spontaneously. No edema, radial and dorsalis pedis pulses 2/4 bilaterally. No cyanosis. Healed partial amputation of the right second finger just distal to the PIP joint. NEUROLOGICAL: Alert and oriented x3. Normal speech. PSYCH: Normal affect, normal mood. SKIN: Warm, dry, normal turgor. No rashes or lesions noted. Course - Re-evaluation Re-evalutation: 06/01/18 11:50 CBC grossly unremarkable only mild anemia with hemoglobin of 0.8, CMP shows slightly elevated creatinine at 1.4, he has had this reading before though it is not his baseline. Glucose mildly elevated, lipase normal, urinalysis shows large blood but no signs of infection. CT scan of the abdomen pelvis shows right-sided perinephric stranding in the right retroperitoneal fat around the kidney and mild right hydronephrosis and hydroureter down to the level of the ureteral vesicular junction where a 2 mm calculus is present. This is expected to pass on its own without any complications. No evidence of hydronephrosis bad enough that it would cause decreased renal function, no evidence of infection. Patient will be treated with pain medication, Flomax, Zofran and Pyridium. Discharged home. - Vital Signs Vital signs: Temp Pulse Resp BP Pulse Ox 98 F 52 L 15 140/77 H 91 L 06/01/18 11:25 06/01/18 07:15 06/01/18 11:00 06/01/18 10:01 06/01/18 11:25 - Laboratory Result Diagrams: 06/01/18 07:40 06/01/18 07:40 Laboratory results interpreted by me: 06/01/18 06/01/18 06/01/18 07:40 07:40 07:40 RBC 3.77 L Hgb 12.8 L MCV 101 H MCH 34.0 H Plt Count 136 L Creatinine 1.40 H Est GFR (Non-Af Amer) 50 L Glucose 144 H Urine Blood LARGE H Discharge - Discharge Clinical Impression: Right distal ureteral calculus Condition: Stable Disposition: HOME, SELF-CARE Additional Instructions: Kidney Stone You are passing or have passed a kidney stone. These stones are usually due to increased calcium or uric acid concentrations in your urine. Stones within the kidney itself are not painful. The pain occurs as the stone leaves the kidney to pass down the long tube, called the ureter, leading to the bladder. If the stone is small, it will usually pass by itself. Most patients can pass the stone at home. You will usually receive medications for pain, nausea or vomiting, and sometimes a medication to assist in passing the kidney stone. However, if the pain is very severe or if vomiting prevents you from taking oral pain medications, you may need to return for further treatment. Drink three or four quarts of fluids per day. You will be given pain medication (if needed) and urine strainers. Strain all your urine to see if the stone passes. If your doctor has asked you to bring the stone in for analysis, return with the stone once it has passed. Return if pain or vomiting become severe, if you develop a high fever, if you are unable to pass your urine, or if other unusual symptoms occur. Take the Zofran every 4 hours as needed for nausea, take ibuprofen 800 mg as needed every 8 hours for pain. You may also take acetaminophen 1000 mg every 6 hours as needed for pain. Please take the Flomax every day to help pass the stone more easily. This may decrease your blood pressure so please be sure to drink plenty of fluid. Take the Azo as directed on the box [id number]. You may buy the generic version which is known as Pyridium. This will turn your urine a reddish-orange color. It will numb your kidneys, ureters and bladder to decrease the pain you are having. Prescriptions: Hydrocodone/Acetaminophen [Etlan 5-325 Tablet] 1 each PO Q4HP PRN #10 tablet PRN Reason: Ondansetron [Zofran Odt 4 mg Tablet] 1 - 2 tab PO Q4H PRN #15 tab.rapdis PRN Reason: For Nausea/Vomiting Phenazopyridine HCl [Pyridium 200 mg Tablet] 200 mg PO TID #15 tablet Tamsulosin HCl [Flomax 0.4 mg Cap.sr] 0.4 mg PO DAILY #7 cap.sr.24h Referrals: KERRI SIGALA, DO [Primary Care Provider] - Follow up as needed I personally performed the services described in the documentation, reviewed and edited the documentation which was dictated to the scribe in my presence, and it accurately records my words and actions.
--- NOTE | 2018-06-01 21:01 | EKG REPORT ---
SEVERITY:- ABNORMAL ECG - ATRIAL FIBRILLATION LOW VOLTAGE IN FRONTAL LEADS : Confirmed by: Rosaline Lynn MD 01-Jun-2018 21:00:25
== END 2018-06-01 12:17 | disposition home or self-care (01) ==
LOC: ER 07:06
DX: N13.2 Hydronephrosis with renal and ureteral calculous obstruction (principal); R31.9 Hematuria, unspecified; R10.9 Unspecified abdominal pain; R10.816 Epigastric abdominal tenderness; R10.811 Right upper quadrant abdominal tenderness; R10.814 Left lower quadrant abdominal tenderness; R19.4 Change in bowel habit; R61 Generalized hyperhidrosis; R06.02 Shortness of breath; F17.210 Nicotine dependence, cigarettes, uncomplicated; I10 Essential (primary) hypertension; Z90.49 Acquired absence of other specified parts of digestive tract; Z95.1 Presence of aortocoronary bypass graft; D64.9 Anemia, unspecified; R73.9 Hyperglycemia, unspecified
CPT/HCPCS: 93005; 99284; 96374; 96375; 36415; 83690; 85025; 80053; 81001; 74177; 93010; J1170; J2405

== ENCOUNTER → 2018-08-09 | Outpatient (CLI) | payer MEDICARE ==
--- NOTE | 2018-08-09 15:41 | RADIOLOGY REPORT (SQ) ---
EXAM DESCRIPTION: LUMBAR SPINE COMPLETE COMPLETED DATE/TIME: 08/09/2018 2:04 pm REASON FOR STUDY: DJD M51.37 OTHER INTERVERTEBRAL DISC DEGENERATION, LUMBOSACRAL R J44.1 CHRONIC O BSTRUCTIVE PULMONARY DISEASE W (ACUTE) EXACER COMPARISON: None. NUMBER OF VIEWS: Five views including obliques. TECHNIQUE: AP, lateral, oblique, and sacral radiographic images acquired of the lumbar spine. LIMITATIONS: None. FINDINGS: MINERALIZATION: Normal. SEGMENTATION: Normal. No transitional anatomy. ALIGNMENT: Normal. VERTEBRAE: Maintained height. No fracture or worrisome bone lesion. DISCS: There is mild narrowing of lumbar disc spaces, most prominently at L4-5 and L5-S1. Small umesh inal osteophytes are present at several levels. POSTERIOR ELEMENTS: Hypertrophic facet changes from L3-S1. HARDWARE: None in the spine. PARASPINAL SOFT TISSUES: Normal. PELVIS: Intact as visualized. No fractures or worrisome bone lesions. SI joints intact. OTHER: No other significant finding. IMPRESSION: Mild degenerative disc disease and spondylosis. Facet arthropathy. No acute finding. TECHNICAL DOCUMENTATION: JOB ID: [id number] [employer]- All Rights Reserved Reading location - IP/workstation name: [email or web address]
--- NOTE | 2018-08-09 15:43 | RADIOLOGY REPORT (SQ) ---
EXAM DESCRIPTION: CHEST PA/LATERAL COMPLETED DATE/TIME: 08/09/2018 2:04 pm REASON FOR STUDY: CHRONIC OBSTRUCTIVE PULMONARY DISEASE W (ACUTE) EXACERBATION COMPARISON: 03/01/2017 EXAM PARAMETERS: NUMBER OF VIEWS: two views TECHNIQUE: Digital Frontal and Lateral radiographic views of the chest acquired. RADIATION DOSE: NA LIMITATIONS: none FINDINGS: LUNGS AND PLEURA: Chronic interstitial changes are present. There is chronic blunting of the costophrenic angles. No focal infiltrate is seen. No mass is appreciated. MEDIASTINUM AND HILAR STRUCTURES: No masses or contour abnormalities. HEART AND VASCULAR STRUCTURES: Cardiomegaly. No chika pulmonary edema. BONES: No acute findings. HARDWARE: None in the chest. OTHER: No other significant finding. IMPRESSION: Cardiomegaly with no chika pulmonary edema. Chronic lung changes. TECHNICAL DOCUMENTATION: JOB ID: [id number] [employer]- All Rights Reserved Reading location - IP/workstation name: [email or web address]
== END ==
LOC: OD 13:34
PROVIDERS: ATTEND Family Medicine
DX: M51.37 Other intervertebral disc degeneration, lumbosacral region (principal); J44.1 Chronic obstructive pulmonary disease with (acute) exacerbation
CPT/HCPCS: 71046; 72110

== ENCOUNTER 2018-11-06 11:11 | Emergency (ER) | payer MEDICARE ==
--- NOTE | 2018-11-06 11:47 | ER Document Report ---
ED General - General Chief Complaint: Breathing Difficulty Stated Complaint: DIFFICULTY BREATHING Time Seen by Provider: 11/06/18 11:38 Primary Care Provider: KERRI SIGALA DO [Primary Care Provider] - Follow up as needed TRAVEL OUTSIDE OF THE [place] IN LAST 30 DAYS: No - HPI Notes: Patient is a 68-year-old male with a history of hypertension, COPD (on oxygen only at nighttime), previous CVA and on Coumadin, continued tobacco abuse who presents complaining of productive cough of yellow sputum, wheezing, shortness of breath that started 2 days ago. Patient states that he is also had pneumonia in the past as well as COPD exacerbations and this feels similar to one of the C OPD exacerbations. He is able to eat and drink without difficulty. He is urinating normally and having normal bowel movements. Denies any headache, fever, neck pain, URI, sore throat, chest pain, palpitations, syncope, abdominal pain, nausea/vomiting/diarrhea, urinary retention, dysuria, hematuria, or rash. - Related Data Allergies/Adverse Reactions: codeine [Codeine] Adverse Reaction (Verified 11/06/18 11:26) GI upset Past Medical History - Social History Smoking Status: Current Every Day Smoker Family History: COPD, Other - Past Medical History Cardiac Medical History: Reports: Hx Atrial Fibrillation, Hx Hyperch olesterolemia, Hx Hypertension Pulmonary Medical History: Reports: Hx COPD, Hx Pneumonia Renal/ Medical History: Denies: Hx Peritoneal Dialysis Malignancy Medical History: Reports Hx Skin Cancer - "treated" the last few sun of 2017 Psychiatric Medical History: Denies: Hx Depression Past Surgical History: Reports: Hx Appendectomy, Hx Cardiac Catheterization, Hx Cardiac Surgery - double by-pass surgery, Hx Coronary Artery Bypass Graft - Triple bypass, Hx Open Heart Surgery - triple bypass 1994, Hx Orthopedic Surgery - Back x2, neck x1, Hx Tonsillectomy - Immunizations Hx Diphtheria, Pertussis, Tetanus Vaccination: Yes Hx Pneumococcal Vaccination: 11/12/16 Review of Systems - Review of Systems -: Yes All other systems reviewed and negative Physical Exam - Vital signs Vitals: Temp Pulse Resp BP Pulse Ox 97.9 F 63 22 H 142/72 H 90 L 11/06/18 11:15 11/06/18 11:15 11/06/18 11:15 11/06/18 11:15 11/06/18 11:15 - Notes Notes: PHYSICAL EXAMINATION: GENERAL: Well-appearing, well-nourished and in no acute distress. A&Ox4. Answers questions appropriately. HEAD: Atraumatic, normocephalic. EYES: Pupils equal round and reactive to light, extraocular movements intact, sclera anicteric, conjunctiva are normal. ENT: Nares patent and without discharge. oropharynx clear without exudates. No tonsilar hypertrophy or erythema. Moist mucous membranes. NECK: Normal range of motion, supple without lymphadenopathy LUNGS: Wheezing throughout all lung perry without retractions noted. Patient is not pursed lip breathing. HEART: Regular rate and rhythm without murmurs, rubs, gallops. ABDOMEN: Soft, nontender, nondistended abdomen. No guarding, no rebound. Normal bowel sounds present. No CVA tenderness bilaterally. Musculoskeletal: FROM to passive/active. Strength 5+/5. Vincent neg. No asymmetry to LE's. Extremities: 1+ pitting edema bilateral LE's. Peripheral pulses 2+. Capillary refill less than 3 seconds. NEUROLOGICAL: Normal speech, normal gait. PSYCH: Normal mood, normal affect. SKIN: Warm, Dry, normal turgor, no rashes or lesions noted. Course - Re-evaluation Re-evalutation: 11/06/18 14:16 Patient is an afebrile, well-hydrated 68-year-old male who presents to the ED with COPD exacerbation. Vitals are acceptable without any significant tachycardia, tachypnea, or hypoxia. PE is otherwise unremarkable. Patient is nontoxic-appearing and is tolerating p.o. without any difficulties. Pt received breathing treatments, magnesium, and solumedrol. CBC, CMP, VBG, EKG/cardiac enzyme, chest x-ray are all unremarkable for any acute pathology. Pt is Wells negative. Patient does not have any chest pain. Pt was ambulated on room air and maintained O2 >97%. Patient's presentation and symptomatology creates low suspicion for ACS, PE, pneumothorax, pericarditis, dissection, respiratory compromise, severe dehydration, sepsis, meningitis, or other systemic emergent condition at this time. Patient is aware that his condition can change from initial presentation and he needs to monitor symptoms closely and seek medical attention for any acute changes. Pt is feeling better and would like to go [place] e. Rx for doxycycline and steroids. He has an inhaler at home. Recommend conservative measures for symptoms. Recheck with your PCM in 2-3 days. Consider consult with Cardiology. Return to the ED with any worsening/concerning symptoms otherwise as reviewed in discharge. Patient is in agreement. - Vital Signs Vital signs: Temp Pulse Resp BP Pulse Ox 98.8 F 63 21 H 121/69 92 11/06/18 12:00 11/06/18 11:15 11/06/18 13:31 11/06/18 13:31 11/06/18 13:31 - Laboratory Result Diagrams: 11/06/18 12:15 11/06/18 12:15 Laboratory results interpreted by me: 11/06/18 11/06/18 11/06/18 11:30 12:15 12:15 RBC 3.75 L Hgb 12.7 L MCV 101 H MCH 33.8 H Plt Count 140 L PT APTT Carbon Dioxide 33 H Urine Blood MODERATE H 11/06/18 13:05 RBC Hgb MCV MCH Plt Count PT 30.7 H APTT 44.1 H Carbon Dioxide Urine Blood Discharge - Discharge Clinical Impression: COPD exacerbation Condition: Stable Disposition: HOME, SELF-CARE Additional Instructions: Maintain adequate fluid intake Use inhaler as directed over the counter cold medication as needed for symptoms Humidified air may help Avoid prolonged exposure and sunlight when on doxycycline as it may cause you to burn easier Wash your hands regularly Wear a mask when coughing F/u: with your PCM in 2-3 days for a recheck Return to the ED with any fever, altered mental status/behavior, chest pain, palpitations, syncope, headache, neck pain/stiffness, shortness of breath, chest pains, wheezing, drooling, trouble swallowing/breathing, abdominal pain, n/v/d, rash, or worsening/concerning symptoms otherwise. Prescriptions: Prednisone [Deltasone 10 mg Tablet] 10 mg PO DAILY #18 tablet Doxycycline Hyclate 100 mg PO BID #20 capsule Forms: Smoking Cessation Education Referrals: KERRI SIGALA DO [Primary Care Provider] - 11/08/18
[2018-11-06] MEDS ORDERED: METHYLPREDNISOLONE INJ 125 MG/2 ML SDV IV ONE (11:48)
[2018-11-06] MEDS ORDERED: IPRATROPIUM/ALBUTEROL 0.5-2.5 MG/3 ML AMPUL NEB ONE (11:48)
[2018-11-06] MEDS ORDERED: MAGNESIUM SULFATE/D5W 1 GM/100 ML RTUPB IV ONE ×2 (11:49)
[2018-11-06 12:07] LABS: APPEARANCE,URINE CLEAR; BILIRUBIN,URINE NEGATIVE (NEGATIVE); COLOR,URINE YELLOW; GLUCOSE, URINE NEGATIVE (NEGATIVE); KETONES,URINE NEGATIVE (NEGATIVE); LEUKOCYTE ESTERASE,URINE NEGATIVE (NEGATIVE); NITRITE,URINE NEGATIVE (NEGATIVE); PROTEIN,URINE NEGATIVE (NEGATIVE); URINE SPECIFIC GRAVITY 1.014; UROBILINOGEN,URINE NEGATIVE mg/dL (<2.0)
--- NOTE | 2018-11-06 12:14 | RADIOLOGY REPORT (SQ) ---
EXAM DESCRIPTION: CHEST SINGLE VIEW COMPLETED DATE/TIME: 11/06/2018 11:54 am REASON FOR STUDY: mp db COMPARISON: 08/09/2018 EXAM PARAMETERS: NUMBER OF VIEWS: One view. TECHNIQUE: Single frontal radiographic view of the chest acquired. RADIATION DOSE: NA LIMITATIONS: None. FINDINGS: LUNGS AND PLEURA: Chronic interstitial changes in by basilar fibrosis. No definite superi mposed airspace disease. Blunting of the bilateral costophrenic angles, likely scarring. No large e ffusion. No pneumothorax. MEDIASTINUM AND HILAR STRUCTURES: No masses. Contour normal. HEART AND VASCULAR STRUCTURES: Enlarged cardiac silhouette, stable. Aortic atherosclerosis. BONES: No acute findings. HARDWARE: CABG hardware. OTHER: No other significant finding. IMPRESSION: Stable enlarged cardiac silhouette and basilar predominant chronic lung changes without definite superimposed cardiopulmonary process. TECHNICAL DOCUMENTATION: JOB ID: [id number] [employer]- All Rights Reserved Reading location - IP/workstation name: [email or web address]
[2018-11-06 12:33] LABS: ABSOLUTE BASOPHILS # (AUTO) 0.1 10^3/uL (0.0-0.2); ABSOLUTE EOSINOPHILS # (AUTO) 0.2 10^3/uL (0.0-0.6); ABSOLUTE MONOCYTES (AUTO) 0.9 10^3/uL (0.1-1.4); BASOPHILS % (AUTO) 0.7 % (0-2); EOSINOPHILS % (AUTO) 3.3 % (0-6); HEMOGLOBIN 12.7 g/dL (13.5-17.0); LYMPHOCYTES % (AUTO) 28.1 % (13-45); MEAN CORPUSCULAR HEMOGLOBIN 33.8 pg (27.0-33.4); MEAN CORPUSCULAR HGB CONC 33.4 g/dL (32.0-36.0); MEAN CORPUSCULAR VOLUME 101 fl (80-97); MONOCYTES % (AUTO) 12.4 % (3-13); PLATELET COUNT 140 10^3/uL (150-450); RED BLOOD COUNT 3.75 10^6/uL (4.35-5.55); RED CELL DISTRIBUTION WIDTH 13.7 % (11.5-14.0); SEGMENTED NEUTROPHILS % (AUTO) 55.5 % (42-78); TOTAL CELLS COUNTED % (AUTO) 100 %; VENOUS BLOOD BASE EXCESS -0.6 mmol/L; VENOUS BLOOD PCO2 50.7 mmHg (35-63); VENOUS BLOOD PH 7.33 (7.30-7.42); WHITE BLOOD COUNT 7.1 10^3/uL (4.0-10.5)
[2018-11-06 12:52] LABS: ALBUMIN 3.9 g/dL (3.5-5.0); ALKALINE PHOSPHATASE 66 U/L (38-126); ANION GAP 6 (5-19); ASPARTATE AMINO TRANSFERASE 24 U/L (17-59); BILIRUBIN,DIRECT 0.2 mg/dL (0.0-0.4); BILIRUBIN,TOTAL 0.6 mg/dL (0.2-1.3); BLOOD UREA NITROGEN 10 mg/dL (7-20); CALCIUM 8.9 mg/dL (8.4-10.2); CARBON DIOXIDE 33 mmol/L (22-30); CHLORIDE 102 mmol/L (98-107); GLUCOSE 100 mg/dL (75-110); POTASSIUM 4.2 mmol/L (3.6-5.0); TOTAL PROTEIN 7.3 g/dL (6.3-8.2)
[2018-11-06 13:13] LABS: NT PRO BNP 432 pg/mL (5-900); TROPONIN I < 0.012 ng/mL
[2018-11-06 13:22] LABS: INTERNATIONAL RATION (INR) 2.87; PARTIAL THROMBOPLASTIN TIME 44.1 SEC (23.5-35.8); PROTHROMBIN TIME 30.7 SEC (11.4-15.4)
[2018-11-06] MEDS ORDERED: ALBUTEROL SULFATE 0.083% NEB 2.5 MG/3 ML AMPUL NEB ONE (13:48)
[2018-11-06 14:32] VITALS: BP 127/78
--- NOTE | 2018-11-07 09:07 | EKG REPORT ---
SEVERITY:- ABNORMAL ECG - ATRIAL FIBRILLATION BORDERLINE LEFT AXIS DEVIATION LOW VOLTAGE IN FRONTAL LEADS NONSPECIFIC T ABNORMALITIES, LATERAL LEADS : Confirmed by: Henry Barnhart 07-Nov-2018 09:07:07
== END 2018-11-06 14:33 | disposition home or self-care (01) ==
LOC: ER 11:11
DX: J44.1 Chronic obstructive pulmonary disease with (acute) exacerbation (principal); R05 Cough; R06.02 Shortness of breath; Z99.81 Dependence on supplemental oxygen; Z86.73 Personal history of transient ischemic attack (TIA), and cerebral infarction without residual deficits; Z79.01 Long term (current) use of anticoagulants; F17.200 Nicotine dependence, unspecified, uncomplicated; I10 Essential (primary) hypertension; I48.91 Unspecified atrial fibrillation
CPT/HCPCS: 93005; 94640 ×2; 99285; 96375; 96365; 36415; 87040; 85025; 85610; 85730; 80053; 81001; 84484; 82803; 83880; 71045; 93010; J2930; J3475; A9270 ×2; J7620

== ENCOUNTER 2019-11-23 19:11 | Inpatient (IN) | payer MEDICARE ==
[2019-11-23] MEDS ORDERED: IPRATROPIUM/ALBUTEROL 0.5-2.5 MG/3 ML AMPUL NEB ONE (20:02)
--- NOTE | 2019-11-23 20:08 | ER Document Report ---
ED General - General Chief Complaint: COPD Exacerbation Stated Complaint: SHORTNESS OF BREATH/COUGH Time Seen by Provider: 11/23/19 19:41 Primary Care Provider: KERRI SIGALA DO [Primary Care Provider] - Follow up as needed TRAVEL OUTSIDE OF THE [place] IN LAST 30 DAYS: No - HPI Notes: Patient is a 69-year-old male with a history of COPD, oxygen dependent on 2 L at night, history of atrial fibrillation and CAD, who presents to the emergency department for evaluation of shortness of breath. He states this been ongoing for about 2 weeks. He has been coughing, intermittently productive. No fevers or chills. Some nausea but no vomiting. He has had some loose stools. No a nosmia or difficulty with his sense of taste. No known COVID-19 exposures to his knowledge. He denies any pain of any sort. He states he is short of breath when he lays down, short of breath when he walks as well. Again he has had no associated anginal type pain, or chest pain of any sort. Patient denies any sort of weight gain. He states his legs do not seem more edematous than normal. - Related Data Allergies/Adverse Reactions: codeine [Codeine] Adverse Reaction (Verified 11/06/18 11:26) GI upset Home Medications: Coreg, lisinopril, Eliquis, spironolactone, simvastatin Past Medical History - General Information source: Patient - Social History Smoking Status: Current Every Day Smoker Frequency of alcohol use: None Family History: CAD, COPD, Other Patient has homicidal ideation: No - Past Medical History Cardiac Medical History: Reports: Hx Atrial Fibrillation, Hx Hypercholesterolemia, Hx Hypertension Pulmonary Medical History: Reports: Hx COPD, Hx Pneumonia Neurological Medical History: Reports: Other - TIAs Renal/ Medical History: Denies: Hx Peritoneal Dialysis Malignancy Medical History: Reports Hx Renal (Kidney) Cancer, Reports Hx Skin Cancer - "treated" the last few months of 2017 Psychiatric Medical History: Denies: Hx Depression Past Surgical History: Reports: Hx Appendectomy, Hx Cardiac Catheterization, Hx Cardiac Surgery - double by-pass surgery, Hx Coronary Artery Bypass Graft - Triple bypass, Hx Open Heart Surgery - triple bypass 1994, Hx Orthopedic Surgery - Back x2, neck x1, Hx Tonsillectomy - Immunizations Hx Diphtheria, Pertussis, Tetanus Vaccination: Yes Hx Pneumococcal Vaccination: 11/12/16 Review of Systems - Review of Systems Constitutional: Weakness EENT: No symptoms reported Cardiovascular: See HPI Respiratory: See HPI Gastrointestinal: See HPI Genitourinary: No symptoms reported Musculoskeletal: No symptoms reported Skin: No symptoms reported Neurological/Psychological: No symptoms reported -: Yes All other systems reviewed and negative Physical Exam - Vital signs Vitals: Temp Pulse Resp BP Pulse Ox 98.0 F 100 26 H 135/62 H 91 L 11/23/19 19:24 11/23/19 19:24 11/23/19 19:24 11/23/19 19:24 11/23/19 19:24 - Notes Notes: Vital signs reviewed, please refer to chart. Head is normocephalic, atraumatic. Pupils equal round, reactive to light. Neck is supple without meningismus. Heart rhythm is irregularly irregular. Lungs reveal scattered rhonchi and wheezing, rales in bilateral bases. Abdomen is soft, nontender, normoactive bowel sounds throughout. Extremities without cyanosis, clubbing. 2+ pitting edema at the ankles. Posterior calves are nontender. Peripheral pulses are equal. Skin is warm and dry. Patient is awake, alert, neurological exam is nonfocal. Course - Re-evaluation Re-evalutation: 11/23/19 20:12 Patient presents to the emergency department for evaluation. His oxygen saturation was 91% on room air on arrival, with a respiratory rate of 26. He was placed on oxygen per nasal cannula. He was placed on a rehabilitation program manager. Laboratory investigations were obtained. In this patient with CAD as well as atrial fibrillation, COPD, I am concerned about the possibility of an infectious process versus heart failure. The patient denies any history of heart failure but is on spironolactone and Coreg. Chart review will be performed to evaluate for any echocardiograms done recently. In the meantime basic blood work, EKG, imaging, DuoNeb ordered. Patient is currently stable, we will continue to monitor. 11/23/19 22:39 Patient's laboratory investigation showed only a mildly proBNP elevation, but findings on chest x-ray consistent with pulmonary edema and pleural effusions. I am concerned about the possibility of CHF leading to this today. I also am concerned about the possibility of COVID. Given testing is ordered. He was given steroids. He has had a cough and some shortness of breath, because of the potential infectious etiology, I did order Rocephin and Zithromax. I spoke with Dr. Blanca, on-call antique repairer. He had an opportunity to review this patient's x-ray. He does believe this to be pulmonary edema, believes the patient should be admitted to the hospital for further evaluation. I will speak with internal medicine. 11/23/19 22:[address] Marc, he will admit the patient. - Vital Signs Vital signs: Temp Pulse Resp BP Pulse Ox 98.0 F 100 23 H 129/95 H 94 11/23/19 19:24 11/23/19 19:24 11/23/19 22:20 11/23/19 22:20 11/23/19 22:20 - Laboratory Result Diagrams: 11/23/19 20:10 11/23/19 20:10 Laboratory results interpreted by me: 11/23/19 11/23/19 11/23/19 20:10 20:10 20:10 RBC 3.87 L MCV 102 H MCH 34.8 H Plt Count 116 L Eos % (Auto) 6.4 H Absolute Eos (auto) 0.7 H BUN 22 H Creatinine 1.27 H Est GFR (MDRD) Non-Af 56 L Lactic Acid NT-Pro-B Natriuret Pep 510 H Total Protein 8.3 H 11/23/19 20:10 RBC MCV MCH Plt Count Eos % (Auto) Absolute Eos (auto) BUN Creatinine Est GFR (MDRD) Non-Af Lactic Acid < 0.5 L NT-Pro-B Natriuret Pep Total Protein - Diagnostic Test Radiology reviewed: Image reviewed, Reports reviewed Radiology results interpreted by me: 11/23/19 21:54 Chest X-Ray 11/23/19 20:01 IMPRESSION: Widespread bilateral airspace disease with suspected small bilateral pleural effusions. Overall, findings are suspicious for pulmonary edema though a component of pneumonia is also a possibility. copyright 2011 [employer]- All Rights Reserved - EKG Interpretation by Me Additional EKG results interpreted by me: 11/23/19 22:40 Atrial fibrillation with a rate of 69 bpm. Normal axis. Borderline prolonged QT interval. Nonspecific ST changes, but no acute changes concerning for ischemia or infarction. No old studies immediately available for comparison. Discharge - Discharge Clinical Impression: COPD exacerbation, Person under investigation for COVID-19 Acute exacerbation of CHF (congestive heart failure) Qualifiers: Heart failure type: combined systolic and diastolic Qualified Code(s): I50.43 - Acute on chronic combined systolic (congestive) and diastolic (congestive) heart failure Condition: Stable Disposition: ADMITTED INPATIENT Admitting Provider: Monico (Hospitalist) Unit Admitted: Telemetry Referrals: KERRI SIGALA DO [Primary Care Provider] - Follow up as needed
[2019-11-23 20:22] LABS: ABSOLUTE BASOPHILS # (AUTO) 0.1 10^3/uL (0.0-0.2); ABSOLUTE EOSINOPHILS # (AUTO) 0.7 10^3/uL (0.0-0.6); ABSOLUTE LYMPHOCYTES (AUTO) 2.4 10^3/uL (0.5-4.7); ABSOLUTE MONOCYTES (AUTO) 0.9 10^3/uL (0.1-1.4); ABSOLUTE NEUT (AUTO) 6.2 10^3/uL (1.7-8.2); BASOPHILS % (AUTO) 0.7 % (0-2); EOSINOPHILS % (AUTO) 6.4 % (0-6); HEMATOCRIT 39.3 % (37.9-51.0); HEMOGLOBIN 13.5 g/dL (13.5-17.0); LYMPHOCYTES % (AUTO) 23.3 % (13-45); MEAN CORPUSCULAR HEMOGLOBIN 34.8 pg (27.0-33.4); MEAN CORPUSCULAR HGB CONC 34.3 g/dL (32.0-36.0); MEAN CORPUSCULAR VOLUME 102 fl (80-97); MONOCYTES % (AUTO) 9.2 % (3-13); PLATELET COUNT 116 10^3/uL (150-450); RED BLOOD COUNT 3.87 10^6/uL (4.35-5.55); RED CELL DISTRIBUTION WIDTH 13.5 % (11.5-14.0); SEGMENTED NEUTROPHILS % (AUTO) 60.4 % (42-78); TOTAL CELLS COUNTED % (AUTO) 100 %; WHITE BLOOD COUNT 10.3 10^3/uL (4.0-10.5)
--- NOTE | 2019-11-23 20:41 | RADIOLOGY REPORT (SQ) ---
EXAM DESCRIPTION: XR CHEST 1 VIEW COMPLETED DATE/TME: 11/23/2019 20:01 CLINICAL HISTORY: 69 years, Male, dyspnea, cough COMPARISON: Prior study from 11/06/2018 NUMBER OF VIEWS: One TECHNIQUE: Single frontal view of the chest was obtained portably LIMITATIONS: None. FINDINGS: Status post median sternotomy. Cardiopericardial silhouette is enlarged. Mediastinal contours are stable. Widespread bilateral airspace opacity is noted along with small bilateral pleural effusions. No pneumothorax. IMPRESSION: Widespread bilateral airspace disease with suspected small bilateral pleural effusions. Overall, findings are suspicious for pulmonary edema though a component of pneumonia is also a possibility. copyright 2010 [employer]- All Rights Reserved
[2019-11-23 20:49] LABS: ALBUMIN 4.6 g/dL (3.5-5.0); ALKALINE PHOSPHATASE 73 U/L (38-126); ANION GAP 11 (5-19); ASPARTATE AMINO TRANSFERASE 30 U/L (17-59); BILIRUBIN,DIRECT 0.3 mg/dL (0.0-0.4); BILIRUBIN,TOTAL 0.9 mg/dL (0.2-1.3); BLOOD UREA NITROGEN 22 mg/dL (7-20); CARBON DIOXIDE 30 mmol/L (22-30); CHLORIDE 100 mmol/L (98-107); GLUCOSE 106 mg/dL (75-110); POTASSIUM 4.5 mmol/L (3.6-5.0); TOTAL PROTEIN 8.3 g/dL (6.3-8.2)
[2019-11-23 21:00] LABS: NT PRO BNP 510 pg/mL (<125)
[2019-11-23 21:13] LABS: TROPONIN I < 0.012 ng/mL
[2019-11-23] MEDS ORDERED: FUROSEMIDE INJ/PF 20 MG/2 ML SDV IV ONE ×2 (22:18→23:35)
[2019-11-23] MEDS ORDERED: DEXAMETHASONE SOD PHOS INJ 10 MG/1 ML VIAL IV ONE (22:18)
[2019-11-23] MEDS ORDERED: AZITHROMYCIN 250 MG TABLET PO ONE (22:33)
[2019-11-23] MEDS ORDERED: CEFTRIAXONE 1 GM/D5W RTU 1 GM/50 ML RTUPB IV ONE (22:37)
[2019-11-23] MEDS ORDERED: AZITHROMYCIN INJ 500 MG VIAL IV ONE (22:38)
[2019-11-23] MEDS ORDERED: CARVEDILOL 12.5 MG TABLET PO ONE (23:00)
--- NOTE | 2019-11-23 23:07 | EKG REPORT ---
SEVERITY:- ABNORMAL ECG - ATRIAL FIBRILLATION LOW VOLTAGE IN FRONTAL LEADS BORDERLINE PROLONGED QT INTERVAL : Confirmed by: Rosaline Lynn MD 23-Nov-2019 23:05:47
[2019-11-23] MEDS ORDERED: MAG HYDROX/AL HYDROX/SIMETH SUSP 30 ML UDCUP PO PRN (23:17)
[2019-11-23] MEDS ORDERED: ACETAMINOPHEN 325 MG TABLET PO PRN (23:17)
[2019-11-23] MEDS ORDERED: ONDANSETRON HCL INJ/PF 4 MG/2 ML SDV IV PRN (23:17)
--- NOTE | 2019-11-23 23:55 | PDOC H&P ---
History of Present Illness Admission Date/PCP: 11/23/19 23:02 KERRI SIGALA DO Patient complains of: Shortness of breath History of Present Illness: EMILIA ENGLISH is a 69 year old male with history of COPD on nighttime oxygen, CAD s/p CABG and stents, who presents to the hospital for evaluation of 3 weeks of progressive shortness of breath. He also endorses cough without much sputum production but occasionally having clear sputum. He also admits to orth opnea and occasional PND. He has inhalers at home which he uses in terms of his COPD. He does not take any water pills besides spironolactone and has not followed up with his processing archivist Dr. Trejo in over a year. He also admits to lower extremity swelling. He denies fever but states a few days ago he felt like he was having night sweats. Admits to diarrhea. Denies any sick contacts. Denies nasal congestion. Noted to be hypoxic at 90% in the ER on room air. Past Medical History Cardiac Medical History: Reports: Atrial Fibrillation, Hyperlipidema, Hypertension Pulmonary Medical History: Reports: Chronic Obstructive Pulmonary Disease (COPD), Pneumonia Neurological Medical History: Reports: Other - TIAs Malignancy Medical History: Reports: Renal (Kidney) Cancer, Skin Cancer - "treated" the last few months of 2017 Psychiatric Medical History: Denies: Depression Past Surgical History Past Surgical History: Reports: Appendectomy, Cardiac Catheterization, Coronary Artery Bypass Graft - Triple bypass, Orthopedic Surgery - Back x2, neck x1, Tonsillectomy Social History Smoking Status: Current Every Day Smoker Frequency of Alcohol Use: None Hx Recreational Drug Use: No Drugs: None Hx Prescription Drug Abuse: No - Advance Directive Resuscitation Status: Full Code Family History Family History: CAD, COPD, Other Parental Family History Reviewed: Yes Children Family History Reviewed: Yes Sibling(s) Family History Reviewed.: Yes Medication/Allergy Home Medications: Lisinopril [Prinivil 5 mg Tablet] 5 mg PO DAILY 11/21/13 Simvastatin [Zocor 20 mg Tablet] 20 mg PO QHS 11/21/13 Spironolactone 25 mg PO DAILY 11/21/13 Tiotropium [place] [Spiriva Handihaler 18 mcg/dose (30 Dose)] 1 cap IH DAILY #30 capsule 08/22/15 Albuterol Sulfate [Proair Respiclick] 90 mcg IH Q6H PRN 08/17/17 Carvedilol [Coreg 25 mg Tablet] 1 tab PO DAILY 08/17/17 Fluticasone/Vilanterol [Breo Ellipta 100-25 Mcg INH] 1 each IH DAILY 08/17/17 Ipratropium/Albuterol Sulfate [Duoneb 3 ml Ampul] 3 ml NEB RTQ6 PRN 08/17/17 Warfarin Sodium [Jantoven 3 mg Tablet] 3 mg PO DAILY 08/17/17 Guaifenesin [Robitussin Syrup 200 mg/10 ml Ud Cup] 200 mg PO Q4HP PRN udc 08/18/17 Levofloxacin [Levaquin 500 mg Tablet] 500 mg PO DAILY #5 tablet 08/18/17 Hydrocodone/Acetaminophen [[place] 5-325 Tablet] 1 each PO Q4HP PRN #10 tablet 06/01/18 Ondansetron [Zofran Odt 4 mg Tablet] 1 - 2 tab PO Q4H PRN #15 tab.rapdis 06/01/18 Phenazopyridine HCl [Pyridium 200 mg Tablet] 200 mg PO TID #15 tablet 06/01/18 Tamsulosin HCl [Flomax 0.4 mg Cap.sr] 0.4 mg PO DAILY #7 cap.sr.24h 06/01/18 Doxycycline Hyclate 100 mg PO BID #20 capsule 11/06/18 Prednisone [Deltasone 10 mg Tablet] 10 mg PO DAILY #18 tablet 11/06/18 Allergies/Adverse Reactions: codeine [Codeine] Adverse Reaction (Verified 11/06/18 11:26) GI upset Review of Systems Constitutional: PRESENT: night sweats. ABSENT: chills, fatigue Eyes: ABSENT: visual disturbances Ears: ABSENT: hearing changes Nose, Mouth, and Throat: ABSENT: headache(s) Cardiovascular: PRESENT: edema, orthropnea. ABSENT: chest pain Respiratory: PRESENT: cough, dyspnea. ABSENT: hemoptysis Gastrointestinal: PRESENT: diarrhea. ABSENT: nausea, vomiting Genitourinary: ABSENT: dysuria Musculoskeletal: ABSENT: back pain Integumentary: ABSENT: rash, wounds Neurological: ABSENT: confusion, dizziness Psychiatric: ABSENT: anxiety Endocrine: ABSENT: polyuria Allergic/Immunologic: ABSENT: seasonal rhinorrhea Physical Exam Vital Signs: Temp Pulse Resp BP Pulse Ox 98.0 F 100 23 H 129/95 H 94 11/23/19 19:24 11/23/19 19:24 11/23/19 22:20 11/23/19 22:20 11/23/19 22:20 Intake & Output 11/22/19 11/23/19 11/24/19 06:59 06:59 06:59 Weight 94.5 kg General appearance: PRESENT: no acute distress, cooperative Head exam: PRESENT: normocephalic Eye exam: PRESENT: EOMI Neck exam: ABSENT: JVD Respiratory exam: PRESENT: rales - Basilar, rhonchi, symmetrical, unlabored, wheezes - Expiratory. ABSENT: accessory muscle use, stridor, tachypnea Cardiovascular exam: PRESENT: RRR, +S1, +S2. ABSENT: tachycardia GI/Abdominal exam: PRESENT: soft. ABSENT: rebound, rigid, tenderness Extremities exam: PRESENT: pedal edema, +1 edema Neurological exam: PRESENT: alert, awake, oriented to person, oriented to place, oriented to time, oriented to situation Psychiatric exam: ABSENT: agitated, anxious Focused psych exam: ABSENT: pressured speech Skin exam: ABSENT: jaundice Results Laboratory Results: 11/23/19 20:10 11/23/19 20:10 11/23/19 11/23/19 11/23/19 20:10 20:10 20:10 WBC 10.3 RBC 3.87 L Hgb 13.5 Hct 39.3 MCV 102 H MCH 34.8 H MCHC 34.3 RDW 13.5 Plt Count 116 L Seg Neutrophils % 60.4 Sodium 140.6 Potassium 4.5 Chloride 100 Carbon Dioxide 30 Anion Gap 11 BUN 22 H Creatinine 1.27 H Est GFR ( Amer) > 60 Glucose 106 Lactic Acid < 0.5 L Calcium 9.0 Total Bilirubin 0.9 AST 30 Alkaline Phosphatase 73 Total Protein 8.3 H Albumin 4.6 11/23/19 20:10 Troponin I < 0.012 NT-Pro-B Natriuret Pep 510 H Impressions: Chest X-Ray 11/23/19 20:01 IMPRESSION: Widespread bilateral airspace disease with suspected small bilateral pleural effusions. Overall, findings are suspicious for pulmonary edema though a component of pneumonia is also a possibility. copyright 2010 [employer]- All Rights Reserved Assessment and Plan - Diagnosis (1) COPD exacerbation Is this a current diagnosis for this admission?: Yes Plan: Has very prominent expiratory wheezes bilaterally. Start duo nebs every 6 hours, Solu-Medrol, azithromycin. Notably, patient uses oxygen at home 2 L nasal cannula but at nighttime only. Currently with mild hypoxia at 90% on room air. (2) Acute on chronic congestive heart failure Qualifiers: Heart failure type: unspecified Qualified Code(s): I50.9 - Heart failure, unspecified Is this a current diagnosis for this admission?: Yes Plan: Midrange EF of 45% on TTE in 2018 BNP only minimally elevated but chest x-ray does show findings suggestive of pulmonary edema and cardiomegaly. We will diurese with IV Lasix 40 mg and will see if this helps patient's hypoxia strict i/os, fluid restriction (3) Suspected COVID-19 virus infection Is this a current diagnosis for this admission?: Yes Plan: Given chest x-ray findings of bilateral interstitial infiltrates, patient was swabbed for COVID-19. I will check some inflammatory markers. (4) Coronary artery disease Qualifiers: Coronary Disease-Associated Artery/Lesion type: [place] artery [place] vs. transplanted heart: [place] heart Associated angina: without angina Qualified Code(s): I25.10 - Atherosclerotic heart disease of [place] coronary artery without angina pectoris Is this a current diagnosis for this admission?: Yes Plan: Has history of CABG and stenting. Continue Coreg, lisinopril and simvastatin. Surprisingly patient is not on any antiplatelet therapy so I will put patient on baby aspirin. (5) Atrial fibrillation Qualifiers: Atrial fibrillation type: unspecified Qualified Code(s): I48.91 - Unspecified atrial fibrillation Is this a current diagnosis for this admission?: Yes Plan: Currently in A. fib. Type is undetermined. Rate is controlled. Continue Coreg and Eliquis. (6) Tobacco abuse Is this a current diagnosis for this admission?: Yes Plan: Smoking cessation encouraged. Nicotine patch will be offered. - Time Time Spent with patient: 35 or more minutes Anticipated Discharge Disposition: Home, Self Care Anticipated Discharge Timeframe: within 36 hours
[2019-11-24] MEDS: IPRATROPIUM/ALBUTEROL 0.5-2.5 MG/3 ML AMPUL NEB SCH ×4 (02:38→21:19)
--- NOTE | 2019-11-24 03:10 | ADVANCED CARE ---
- Diagnosis (1) COPD exacerbation Diagnosis Current: Yes (2) Acute on chronic congestive heart failure Diagnosis Current: Yes (3) Suspected COVID-19 virus infection Diagnosis Current: Yes Resuscitation Status: Full Code Discussion: We discussed patient's condition. Also discussed investigation plans including investigation for COVID-19. Discussed patient's CODE STATUS and he opts for a full code. Should his oxygenation worsened, he is okay with NIPPV, high flow as well as intubation as deemed necessary by the provider. Time Spent: 17mins
[2019-11-24 06:51] LABS: HEMATOCRIT 38.8 % (37.9-51.0); HEMOGLOBIN 13.4 g/dL (13.5-17.0); MEAN CORPUSCULAR HEMOGLOBIN 34.5 pg (27.0-33.4); MEAN CORPUSCULAR HGB CONC 34.5 g/dL (32.0-36.0); MEAN CORPUSCULAR VOLUME 100 fl (80-97); PLATELET COUNT 119 10^3/uL (150-450); RED BLOOD COUNT 3.87 10^6/uL (4.35-5.55); RED CELL DISTRIBUTION WIDTH 13.5 % (11.5-14.0)
[2019-11-24 07:15] LABS: ANION GAP 8 (5-19); BLOOD UREA NITROGEN 23 mg/dL (7-20); C-REACTIVE PROTEIN 7.3 mg/L (<10.0); CALCIUM 9.1 mg/dL (8.4-10.2); CARBON DIOXIDE 34 mmol/L (22-30); CHLORIDE 96 mmol/L (98-107); GLUCOSE 150 mg/dL (75-110); PHOSPHORUS 3.7 mg/dL (2.5-4.5); POTASSIUM 4.6 mmol/L (3.6-5.0)
[2019-11-24 07:56] LABS: A TYPE INFLUENZA AG NEGATIVE (NEGATIVE); B INFLUENZA AG NEGATIVE (NEGATIVE)
[2019-11-24] MEDS ORDERED: GUAIFENESIN SYRP 200 MG/10 ML UDC PO PRN (10:35)
--- NOTE | 2019-11-24 10:38 | PDOC PROGRESS REPORT ---
Subjective Progress Note for:: 11/24/19 Subjective:: EMILIA ENGLISH is a 69 year old male with history of COPD on nighttime oxygen, CAD s/p CABG and stents, hypertension, atrial fibrillation, hyperlipidemia who was admitted 11/23/2027 with Acute on chronic CHF and COPD exacerbations. Patient was seen on morning rounds. He is found resting in bed, comfortably, on supplemental oxygen at 3 L/min. At baseline, patient only utilizes oxygen when sleeping. He does report continued slight dyspnea with ambulatory to the restroom but otherwise is comfortable at rest. He denies chest pain, palpitations, orthopnea, abdominal pain, nausea vomiting and diarrhea. He does confirm an occasional nonproductive cough. He has no questions or concerns at this time; hopeful to discharge home soon. No concerns per nursing. Reason For Visit: COPD, CHF, PUI Physical Exam Vital Signs: Temp Pulse Resp BP Pulse Ox 97.7 F 79 19 108/70 98 11/24/19 08:57 11/24/19 08:57 11/24/19 10:00 11/24/19 09:50 11/24/19 10:00 Intake & Output 11/23/19 11/24/19 11/25/19 06:59 06:59 06:59 Intake Total 50 Output Total 800 700 Balance -750 -700 Weight 94.5 kg General appearance: PRESENT: no acute distress, cooperative, well-developed, well-nourished Head exam: PRESENT: atraumatic, normocephalic Eye exam: PRESENT: conjunctiva pink, EOMI, PERRLA. ABSENT: scleral icterus Mouth exam: PRESENT: moist, tongue midline Respiratory exam: PRESENT: rhonchi, symmetrical, unlabored, wheezes - Expiratory. ABSENT: rales Cardiovascular exam: PRESENT: RRR, +S1, +S2. ABSENT: diastolic murmur, rubs, systolic murmur Vascular exam: PRESENT: normal capillary refill Extremities exam: PRESENT: full ROM. ABSENT: calf tenderness, clubbing, pedal edema, +1 edema Musculoskeletal exam: PRESENT: ambulatory Neurological exam: PRESENT: alert, awake, oriented to person, oriented to place, oriented to time, oriented to situation, CN II-XII grossly intact. ABSENT: motor sensory deficit Psychiatric exam: PRESENT: appropriate affect, normal mood. ABSENT: homicidal ideation, suicidal ideation Skin exam: PRESENT: dry, intact, warm. ABSENT: cyanosis, rash Results Laboratory Results: 11/24/19 06:10 11/24/19 06:10 11/23/19 11/23/19 11/23/19 20:10 20:10 20:10 WBC 10.3 RBC 3.87 L Hgb 13.5 Hct 39.3 MCV 102 H MCH 34.8 H MCHC 34.3 RDW 13.5 Plt Count 116 L Seg Neutrophils % 60.4 Sodium 140.6 Potassium 4.5 Chloride 100 Carbon Dioxide 30 Anion Gap 11 BUN 22 H Creatinine 1.27 H Est GFR ( Amer) > 60 Glucose 106 Lactic Acid < 0.5 L Calcium 9.0 Phosphorus Magnesium Ferritin Total Bilirubin 0.9 AST 30 Alkaline Phosphatase 73 C-Reactive Protein Total Protein 8.3 H Albumin 4.6 TSH 11/24/19 11/24/19 11/24/19 06:10 06:10 06:10 WBC 6.0 RBC 3.87 L Hgb 13.4 L Hct 38.8 MCV 100 H MCH 34.5 H MCHC 34.5 RDW 13.5 Plt Count 119 L Seg Neutrophils % Sodium 138.1 Potassium 4.6 Chloride 96 L Carbon Dioxide 34 H Anion Gap 8 BUN 23 H Creatinine 1.24 Est GFR ( Amer) > 60 Glucose 150 H Lactic Acid Calcium 9.1 Phosphorus 3.7 Magnesium 1.9 Ferritin 288.00 Total Bilirubin AST Alkaline Phosphatase C-Reactive Protein 7.3 Total Protein Albumin TSH 0.94 11/23/19 20:10 Troponin I < 0.012 NT-Pro-B Natriuret Pep 510 H Impressions: Chest X-Ray 11/23/19 20:01 IMPRESSION: Widespread bilateral airspace disease with suspected small bilateral pleural effusions. Overall, findings are suspicious for pulmonary edema though a component of pneumonia is also a possibility. copyright 2010 [employer]- All Rights Reserved Assessment and Plan - Diagnosis (1) Acute on chronic congestive heart failure Qualifiers: Heart failure type: unspecified Qualified Code(s): I50.9 - Heart failure, unspecified Is this a current diagnosis for this admission?: Yes Plan: Midrange EF of 45% on TTE in 2018 BNP only minimally elevated but chest x-ray does show findings suggestive of pulmonary edema and cardiomegaly. We will continue home dose carvedilol, lisinopril, simvastatin. Have started daily aspirin therapy. Continue home dose Eliquis. We will diurese with IV Lasix 40 mg daily strict i/os, fluid restriction Cardiac diet. Cardiology consulted. (2) COPD exacerbation Is this a current diagnosis for this admission?: Yes Plan: Has very prominent expiratory wheezes bilaterally; slight rhonchi noted today. Utilizes home O2 nightly. Does not require oxygen while awake or ambulatory. Will provide supplemental oxygen as needed to maintain saturations greater than 89%. Start on scheduled and as needed nebulizer treatments. Provide IV Solu-Medrol. Placed on p.o. azithromycin. Mucinex twice daily. Robitussin as needed. Pulmonary toilet is encouraged with incentive spirometer, flutter valve, and early ambulation. (3) Atrial fibrillation Qualifiers: Atrial fibrillation type: unspecified Qualified Code(s): I48.91 - Unspecified atrial fibrillation Is this a current diagnosis for this admission?: Yes Plan: Currently in A. fib. Type is undetermined. Rate is controlled. Continue Coreg and Eliquis. (4) Coronary artery disease Qualifiers: Coronary Disease-Associated Artery/Lesion type: [place] artery [place] vs. transplanted heart: [place] heart Associated angina: without angina Qualified Code(s): I25.10 - Atherosclerotic heart disease of [place] coronary artery without angina pectoris Is this a current diagnosis for this admission?: Yes Plan: Has history of CABG and stenting. Continue Coreg, lisinopril and simvastatin. Have started daily aspirin therapy. Cardiac diet (5) Suspected COVID-19 virus infection Is this a current diagnosis for this admission?: Yes Plan: Given chest x-ray findings of bilateral interstitial infiltrates, patient was s wabbed for COVID-19. COVID pending D-dimer is mildly elevated; <1 Ferritin and CRP are normal Patient continues on home dose of Eliquis; 5 mg every 12 hours Provide supplemental oxygen as needed maintain saturations greater than 89%. Scheduled and as needed nebulizer treatments. Continue p.o. azithromycin x5-day course Continues steroid therapy Zinc, vitamin D, vitamin C, and melatonin supplementation. Encourage pulmonary toilet. Isolation precautions. (6) Tobacco abuse Is this a current diagnosis for this admission?: Yes Plan: Smoking cessation encouraged. Nicotine patch will be offered. - Time Time Spent with patient: 25-34 minutes Medications reviewed and adjusted accordingly: Yes Anticipated Discharge Disposition: Home, Self Care Anticipated Discharge Timeframe: within 48 hours
[2019-11-24] MEDS: ASCORBIC ACID 500 MG TABLET PO SCH ×2 (11:40→17:17)
[2019-11-24] MEDS: ZINC SULFATE 220 MG CAPSULE PO SCH (11:40)
[2019-11-24] MEDS: ASPIRIN 81 MG TABLET, ENT COATED PO SCH (11:40)
[2019-11-24] MEDS: APIXABAN 5 MG TABLET PO SCH ×2 (11:41→22:08)
[2019-11-24] MEDS: SPIRONOLACTONE 25 MG TABLET PO SCH (11:41)
[2019-11-24] MEDS: CARVEDILOL 12.5 MG TABLET PO SCH ×2 (11:41→22:08)
[2019-11-24] MEDS: CHOLECALCIFEROL (D3) 1,000 UNIT (25 MCG) TABLET PO SCH (11:41)
[2019-11-24] MEDS: FUROSEMIDE INJ/PF 40 MG/4 ML SDV IV SCH (11:42)
[2019-11-24] MEDS: METHYLPREDNISOLONE INJ 40 MG/1 ML SDV IV SCH (11:42)
[2019-11-24] MEDS: LISINOPRIL 5 MG TABLET PO SCH (11:42)
--- NOTE | 2019-11-24 14:52 | Progress Note ---
Provider Note Provider Note: The patient was consulted to cardiology for HF. I reviewed his chart and discussed the case with the hospitalist, JOHANNA Escalona. The patient is hemodynamically stable and on appropriate medical management. We agreed to wait for his Covid-19 results to be back before evaluating the patient. He also needs an echocardiogram.
[2019-11-24] MEDS ORDERED: AZITHROMYCIN 250 MG TABLET PO SCH (18:00)
--- NOTE | 2019-11-24 19:48 | EKG REPORT ---
SEVERITY:- ABNORMAL ECG - ATRIAL FIBRILLATION LOW VOLTAGE IN FRONTAL LEADS : Confirmed by: Henry Barnhart 24-Nov-2019 19:48:23
[2019-11-24] MEDS ORDERED: SIMVASTATIN 10 MG TABLET PO SCH (22:00)
[2019-11-24] MEDS: GUAIFENESIN 600 MG TABLET.SA PO SCH (22:08)
[2019-11-25] MEDS: IPRATROPIUM/ALBUTEROL 0.5-2.5 MG/3 ML AMPUL NEB SCH ×3 (01:57→13:56)
[2019-11-25 05:54] LABS: HEMATOCRIT 38.6 % (37.9-51.0); MEAN CORPUSCULAR HEMOGLOBIN 33.6 pg (27.0-33.4); MEAN CORPUSCULAR HGB CONC 33.5 g/dL (32.0-36.0); MEAN CORPUSCULAR VOLUME 100 fl (80-97); PLATELET COUNT 128 10^3/uL (150-450); RED BLOOD COUNT 3.86 10^6/uL (4.35-5.55); RED CELL DISTRIBUTION WIDTH 13.3 % (11.5-14.0)
[2019-11-25 06:01] LABS: ANION GAP 11 (5-19); CALCIUM 9.2 mg/dL (8.4-10.2); CARBON DIOXIDE 29 mmol/L (22-30); CHLORIDE 94 mmol/L (98-107); GLUCOSE 120 mg/dL (75-110); POTASSIUM 4.6 mmol/L (3.6-5.0)
[2019-11-25 06:02] LABS: WHITE BLOOD COUNT 18.4 10^3/uL (4.0-10.5)
[2019-11-25 06:19] LABS: BLOOD UREA NITROGEN 48 mg/dL (7-20)
[2019-11-25] MEDS ORDERED: INFLUENZA QUAD (6MOS+) 2020-21 VAC 0.5 ML SYR IM ONE (08:00)
[2019-11-25] MEDS: ASPIRIN 81 MG TABLET, ENT COATED PO SCH (09:07)
[2019-11-25] MEDS: ASCORBIC ACID 500 MG TABLET PO SCH (09:08)
[2019-11-25] MEDS: CARVEDILOL 12.5 MG TABLET PO SCH (09:08)
[2019-11-25] MEDS: LISINOPRIL 5 MG TABLET PO SCH (09:09)
[2019-11-25] MEDS: ZINC SULFATE 220 MG CAPSULE PO SCH (09:09)
[2019-11-25] MEDS: CHOLECALCIFEROL (D3) 1,000 UNIT (25 MCG) TABLET PO SCH (09:10)
[2019-11-25] MEDS: APIXABAN 5 MG TABLET PO SCH (09:10)
[2019-11-25] MEDS: GUAIFENESIN 600 MG TABLET.SA PO SCH (09:10)
[2019-11-25] MEDS: METHYLPREDNISOLONE INJ 40 MG/1 ML SDV IV SCH (09:11)
[2019-11-25] MEDS: FUROSEMIDE INJ/PF 40 MG/4 ML SDV IV SCH (09:13)
[2019-11-25] MEDS: SPIRONOLACTONE 25 MG TABLET PO SCH (09:15)
--- NOTE | 2019-11-25 13:56 | PDOC DISCHARGE SUMMARY ---
Impression - Admit/DC Date/PCP Admission Date/Primary Care Provider: 11/23/19 23:02 KERRI CORTES DO Discharge Date: 11/25/19 - Discharge Diagnosis (1) Acute on chronic systolic (congestive) heart failure Is this a current diagnosis for this admission?: Yes (2) COPD exacerbation Is this a current diagnosis for this admission?: Yes (3) Longstanding persistent atrial fibrillation Is this a current diagnosis for this admission?: Yes (4) Coronary artery disease Is this a current diagnosis for this admission?: Yes (5) Suspected COVID-19 virus infection Is this a current diagnosis for this admission?: Yes (6) Tobacco abuse Is this a current diagnosis for this admission?: Yes (7) Pulmonary hypertension Is this a current diagnosis for this admission?: Yes - Additional Information Resuscitation Status: Full Code Discharge Diet: Cardiac Discharge Activity: Activity As Tolerated, Balance Activity w/Rest, Weigh Daily Referrals: KERRI CORTES DO [Primary Care Provider] - 12/01/19 4:15 pm Prescriptions: Prednisone [Deltasone 10 mg Tablet] 10 mg PO ASDIR PRN #21 tablet PRN Reason: Furosemide [Lasix 20 mg Tablet] 20 mg PO QAM #30 tablet Azithromycin [Zithromax 250 mg Tablet] 250 mg PO QPM 5 Days #5 tablet Home Medications: Lisinopril [Prinivil 5 mg Tablet] 5 mg PO DAILY 11/21/13 Simvastatin [Zocor 20 mg Tablet] 20 mg PO QPM 11/21/13 Spironolactone 25 mg PO DAILY 11/21/13 Tiotropium [place] [Spiriva Handihaler 18 mcg/dose (30 Dose)] 1 cap IH DAILY #30 capsule 08/22/15 Carvedilol [Coreg 25 mg Tablet] 25 mg PO Q12 08/17/17 Tamsulosin HCl [Flomax 0.4 mg Cap.sr] 0.4 mg PO DAILY #7 cap.sr.24h 06/01/18 Albuterol Sulfate [Albuterol Sulfate Hfa] 2 puff IH Q6HP PRN 11/24/19 Albuterol Sulfate [Ventolin 0.083% Neb 2.5 mg/3 mL Ampul] 1 vial NEB RTQIDP PRN 11/24/19 Apixaban [Eliquis 5 mg Tablet] 5 mg PO Q12 11/24/19 Hydrocodone/Acetaminophen [[place] 5-325 Tablet] 1 each PO Q6HP PRN 11/24/19 Umeclidinium Brm/Vilanterol Tr [Anoro Ellipta 62.5-25 Mcg INH] 1 puff IH DAILY 11/24/19 Apixaban [Eliquis 5 mg Tablet] 5 mg PO Q12 tablet 11/25/19 Aspirin [Ecotrin 81 mg EC Tablet] 81 mg PO DAILY tabec 11/25/19 Azithromycin [Zithromax 250 mg Tablet] 250 mg PO QPM 5 Days #5 tablet 11/25/19 Carvedilol [Coreg 12.5 mg Tablet] 25 mg PO Q12 tablet 11/25/19 Furosemide [Lasix 20 mg Tablet] 20 mg PO QAM #30 tablet 11/25/19 Guaifenesin [Mucinex Sr 600 mg Tablet.sa] 600 mg PO Q12 tablet.sa 11/25/19 Lisinopril [Prinivil 5 mg Tablet] 5 mg PO DAILY tablet 11/25/19 Prednisone [Deltasone 10 mg Tablet] 10 mg PO ASDIR PRN #21 tablet 11/25/19 Simvastatin [Zocor 10 mg Tablet] 20 mg PO QHS tablet 11/25/19 Spironolactone [Aldactone 25 mg Tablet] 25 mg PO DAILY tablet 11/25/19 History of Present Illiness History of Present Illness: EMILIA ENGLISH is a 69 year old male with history of COPD on nighttime oxygen, CAD s/p CABG and stents, who presents to the hospital for evaluation of 3 weeks of progressive shortness of breath. He also endorses cough without much sputum production but occasionally having clear sputum. He also admits to orthopnea and occasional PND. He has inhalers at home which he uses in terms of his COPD. He does not take any water pills besides spironolactone and has not followed up with his director payer Dr. Trejo in over a year. He also admits to lower extremity swelling. He denies fever but states a few days ago he felt like he was having night sweats. Admits to diarrhea. Denies any sick contacts. Denies nasal congestion. Noted to be hypoxic at 90% in the ER on room air. Hospital Course Hospital Course: The patient reports a rapid improvement in his respiratory status. He received antibiotic therapy, steroids and diuresis. He states that he feels he is back at baseline. He is already on oxygen at home. He feels that it is reasonable for discharge to home. His COVID test came back negative as well. Physical Exam Vital Signs: Temp Pulse Resp BP Pulse Ox 98.0 F 71 18 91/58 L 97 11/25/19 12:31 11/25/19 12:31 11/25/19 12:31 11/25/19 12:31 11/25/19 12:31 Intake & Output 11/24/19 11/25/19 11/26/19 06:59 06:59 06:59 Intake Total 50 250 Output Total 800 2300 Balance -750 -2050 Weight 94.5 kg 89.6 kg General appearance: PRESENT: no acute distress, cooperative, well-developed, other - On nasal cannula oxygen. ABSENT: disheveled Head exam: PRESENT: atraumatic, normocephalic Ear exam: PRESENT: normal external ear exam. ABSENT: bleeding, drainage Teeth exam: PRESENT: poor dentation Respiratory exam: PRESENT: symmetrical, unlabored, wheezes - Sporadic expiratory wheeze. ABSENT: rales, rhonchi, tachypnea Cardiovascular exam: PRESENT: RRR, +S1, +S2, systolic murmur - For over 6. ABSENT: bradycardia, diastolic murmur, irregular rhythm, tachycardia GI/Abdominal exam: PRESENT: normal bowel sounds, soft. ABSENT: distended, guarding, tenderness Rectal exam: PRESENT: deferred Gentrourinary exam: ABSENT: indwelling catheter Neurological exam: PRESENT: alert, awake, oriented to person, oriented to place, oriented to time, oriented to situation, CN II-XII grossly intact. ABSENT: altered Psychiatric exam: PRESENT: appropriate affect. ABSENT: agitated, anxious Focused psych exam: ABSENT: delusional, paranoid, restlessness Skin exam: PRESENT: dry, normal color, warm. ABSENT: rash Results Laboratory Results: WBC 18.4 10^3/uL (4.0-10.5) H D 11/25/19 04:53 RBC 3.86 10^6/uL (4.35-5.55) L 11/25/19 04:53 Hgb 13.0 g/dL (13.5-17.0) L 11/25/19 04:53 Hct 38.6 % (37.9-51.0) 11/25/19 04:53 MCV 100 fl (80-97) H 11/25/19 04:53 MCH 33.6 pg (27.0-33.4) H 11/25/19 04:53 MCHC 33.5 g/dL (32.0-36.0) 11/25/19 04:53 RDW 13.3 % (11.5-14.0) 11/25/19 04:53 Plt Count 128 10^3/uL (150-450) L 11/25/19 04:53 Lymph % (Auto) 23.3 % (13-45) 11/23/19 20:10 [place] % (Auto) 9.2 % (3-13) 11/23/19 20:10 Eos % (Auto) 6.4 % (0-6) H 11/23/19 20:10 Baso % (Auto) 0.7 % (0-2) 11/23/19 20:10 Absolute Neuts (auto) 6.2 10^3/uL (1.7-8.2) 11/23/19 20:10 Absolute Lymphs (auto) 2.4 10^3/uL (0.5-4.7) 11/23/19 20:10 Absolute Monos (auto) 0.9 10^3/uL (0.1-1.4) 11/23/19 20:10 Absolute Eos (auto) 0.7 10^3/uL (0.0-0.6) H 11/23/19 20:10 Absolute Basos (auto) 0.1 10^3/uL (0.0-0.2) 11/23/19 20:10 Seg Neutrophils % 60.4 % (42-78) 11/23/19 20:10 D-Dimer 0.54 ug/mL (0.00-0.50) H 11/24/19 06:10 Sodium 134.2 mmol/L (137-145) L 11/25/19 04:53 Potassium 4.6 mmol/L (3.6-5.0) 11/25/19 04:53 Chloride 94 mmol/L (98-107) L 11/25/19 04:53 Carbon Dioxide 29 mmol/L (22-30) 11/25/19 04:53 Anion Gap 11 (5-19) 11/25/19 04:53 BUN 48 mg/dL (7-20) H D 11/25/19 04:53 Creatinine 1.45 mg/dL (0.52-1.25) H 11/25/19 04:53 Est GFR ( Amer) 58 (>60) L 11/25/19 04:53 Est GFR (MDRD) Non-Af 48 (>60) L 11/25/19 04:53 Glucose 120 mg/dL (75-110) H 11/25/19 04:53 Lactic Acid < 0.5 mmol/L (0.7-2.1) L 11/23/19 20:10 Calcium 9.2 mg/dL (8.4-10.2) 11/25/19 04:53 Phosphorus 3.7 mg/dL (2.5-4.5) 11/24/19 06:10 Magnesium 1.9 mg/dL (1.6-2.3) 11/24/19 06:10 Ferritin 288.00 ng/mL (17.9-464.0) 11/24/19 06:10 Total Bilirubin 0.9 mg/dL (0.2-1.3) 11/23/19 20:10 Direct Bilirubin 0.3 mg/dL (0.0-0.4) 11/23/19 20:10 Neonat Total Bilirubin Not Reportable 11/23/19 20:10 Neonat Direct Bilirubin Not Reportable 11/23/19 20:10 Neonat Indirect Bili Not Reportable 11/23/19 20:10 AST 30 U/L (17-59) 11/23/19 20:10 ALT 17 U/L (<50) 11/23/19 20:10 Alkaline Phosphatase 73 U/L (38-126) 11/23/19 20:10 Troponin I < 0.012 ng/mL 11/23/19 20:10 C-Reactive Protein 7.3 mg/L (<10.0) 11/24/19 06:10 NT-Pro-B Natriuret Pep 510 pg/mL (<125) H 11/23/19 20:10 Total Protein 8.3 g/dL (6.3-8.2) H 11/23/19 20:10 Albumin 4.6 g/dL (3.5-5.0) 11/23/19 20:10 TSH 0.94 uIU/mL (0.47-4.68) 11/24/19 06:10 COVID-19 Source See comment 11/23/19 22:34 COVID-19 (MIRIAM) Not Detected (Not Detect) 11/23/19 22:34 Influenza A (Rapid) NEGATIVE (NEGATIVE) 11/24/19 07:00 Influenza B (Rapid) NEGATIVE (NEGATIVE) 11/24/19 07:00 11/23/19 20:10 Troponin I < 0.012 NT-Pro-B Natriuret Pep 510 H Impressions: Chest X-Ray 11/23/19 20:01 IMPRESSION: Widespread bilateral airspace disease with suspected small bilateral pleural effusions. Overall, findings are suspicious for pulmonary edema though a component of pneumonia is also a possibility. copyright 2011 [employer]- All Rights Reserved [employer] Concerns: Combination of heart failure and COPD the exacerbation in patient with history of low ejection fraction. Plan of Treatment: Complete antibiotic therapy as prescribed. Prednisone taper. Continue previous cardiac medications with addition of furosemide Follow-up with Dr. Cortes Suggest repeat echocardiogram and possible cardiology referral Goals: Maximize therapy for heart failure Discontinue tobacco use Time Spent: Greater than 30 Minutes Stroke Is this a Stroke Patient?: No Acute Heart Failure Is this a Heart Failure Patient?: Yes Documentation of LVEF assessment?: Planned for after discharge LVEF: LVEF Greater Than 40% Anticoagulant Therapy: Yes Discharged on Evidence-Based Beta Blockers: Yes Discharged on ARNI?: No-Document Contraindications Reason(s) not discharged on ARNI: ACEI use within the prior 36 hours Discharged on ARB?: No-document contraindications Reason(s) not Discharged on ARB: Other ARB Reason - Other: Discharged on ENA inhibitor Discharged on ACEI?: Yes Follow-up Appointment scheduled within 7 days?: Yes
[2019-11-25 14:38] VITALS: BP 108/56
== END 2019-11-25 15:25 | disposition home or self-care (01) | DRG 292 ==
LOC: ER 19:11 → OBSVTOIN 23:02 → EH 23:02 → INTOOBSV 23:02 → EH 23:21 → ICU 11-24 08:49 → 3N 11-24 19:50 → 4W 11-25 11:54
PROVIDERS: ADMIT Internal Medicine; ATTEND Hospitalist
DX: I11.0 Hypertensive heart disease with heart failure (principal); J44.1 Chronic obstructive pulmonary disease with (acute) exacerbation; I48.11 Longstanding persistent atrial fibrillation; I50.43 Acute on chronic combined systolic (congestive) and diastolic (congestive) heart failure; I25.10 Atherosclerotic heart disease of native coronary artery without angina pectoris; F17.200 Nicotine dependence, unspecified, uncomplicated; E78.5 Hyperlipidemia, unspecified; Z20.828 Contact with and (suspected) exposure to other viral communicable diseases; Z99.81 Dependence on supplemental oxygen; Z88.6 Allergy status to analgesic agent; Z79.01 Long term (current) use of anticoagulants; Z79.899 Other long term (current) drug therapy; Z86.73 Personal history of transient ischemic attack (TIA), and cerebral infarction without residual deficits; Z85.528 Personal history of other malignant neoplasm of kidney; Z85.828 Personal history of other malignant neoplasm of skin; Z90.49 Acquired absence of other specified parts of digestive tract; Z95.1 Presence of aortocoronary bypass graft; Z95.5 Presence of coronary angioplasty implant and graft; Z79.51 Long term (current) use of inhaled steroids; Z23 Encounter for immunization
CPT/HCPCS: 36415; 71045; 80048; 80053; 82728; 83605; 83735; 83880; 84100; 84443; 84484; 85025; 85027; 85379; 86140; 87040; 87150; 87635; 87804; 90471; 90686; 93005; 93010; 94640; 94667; 94799; 96374; 96375; 99285; C9803; G0008; J0456; J0696; J1100; J1940; J2920; J3490